=== PATIENT | male | born 1960 | race Caucasian/White ===

== ENCOUNTER 2019-04-08 12:34 | Emergency (ER) | payer SELFPAY ==
--- NOTE | 2019-04-08 14:22 | RAD REPORT ---
EXAM DESCRIPTION: RAD - Knee Right 3 View - 04/08/2019 2:05 pm CLINICAL HISTORY: Right knee pain FINDINGS: Marked osteoarthritis involves the medial compartment consisting joint space narrowing and osteophytes. Patellofemoral compartment is also involved. Bones are osteoporotic
--- NOTE | 2019-04-08 14:46 | EDPHYS ---
Physician Documentation [facility] Name: Jacob Pearson Age: 58 yrs Sex: Male : 1960 Arrival Date: 04/08/2019 Time: 12:35 Bed 12 Private MD: ED Physician Kal Vallejo HPI: 04/08 13:43 This 58 yrs old Male presents to ER via Ambulatory with complaints of Knee jmm Injury. 13:43 The patient presents with an injury, pain. Onset: The symptoms/episode began/occurred jmm acutely, just prior to arrival. Modifying factors: The symptoms are alleviated by remaining still, the symptoms are aggravated by movement, weight bearing, bending knee. Associated signs and symptoms: Pertinent negatives swelling, vomiting. This is a 58 year old male with a history of CAD presents to the ED with pain to the right knee after a fall which occurred just prior to arrival. Patient states he was carrying moving boxes and fell directly on the right knee from a standing position. Denies other injury. . Historical: - Allergies: 13:10 Cortisone; ph - PMHx: 13:10 R knee; cardiac stents; ph - Immunization history:: Adult Immunizations unknown. - Social history:: Smoking status: Patient/guardian denies using tobacco. - Ebola Screening: : No symptoms or risks identified at this time. ROS: 13:43 Constitutional: Negative for fever, chills, and weight loss, Cardiovascular: Negative jmm for chest pain, palpitations, and edema, Respiratory: Negative for shortness of breath, cough, wheezing, and pleuritic chest pain. 13:43 MS/extremity: Positive for injury or acute deformity, pain. 13:43 All other systems are negative. Exam: 13:43 Constitutional: This is a well developed, well nourished patient who is awake, alert, jmm and in no acute distress. Head/Face: atraumatic. Eyes: EOMI, no conjunctival erythema appreciated ENT: Moist Mucus Membranes Neck: Trachea midline, Supple Chest/axilla: Normal chest wall appearance and motion. Cardiovascular: Regular rate and rhythm. No edema appreciated Respiratory: Normal respirations, no respiratory distress appreciated Abdomen/GI: Non distended, soft Skin: General appearance color normal 13:43 Musculoskeletal/extremity: anterior knee TTP, FROM appreciated, compartments are soft, NVI. 13:43 Skin: Appearance: Color: normal in color. 13:43 Neuro: Orientation: is normal, Mentation: is normal, Memory: is normal. 13:43 Psych: Behavior/mood is pleasant, cooperative. Vital Signs: 13:09 BP 141 / 87; Pulse 87; Resp 18; Temp 97.8; Pulse Ox 97% on R/A; Weight 83.91 kg; Height ph 6 ft. 0 in. (182.88 cm); 14:25 BP 132 / 76; Pulse 81; Resp 18; Temp 97.5; Pulse Ox 99% on R/A; ph 13:09 Body Mass Index 25.09 (83.91 kg, 182.88 cm) ph MDM: 13:43 Patient medically screened. [facility] 14:44 Data reviewed: vital signs, nurses notes. Counseling: I had a detailed discussion with [facility] the patient and/or guardian regarding: the historical points, exam findings, and any diagnostic results supporting the discharge/admit diagnosis, radiology results, the need for outpatient follow up, to return to the emergency department if symptoms worsen or persist or if there are any questions or concerns that arise at home. 14:44 ED course: Xray negative for fracture. Patient states feeling much better after knee m immobilizer application. patient advised to follow up with ortho for reevaluation and otherwise given strict return precautions. patient understood and agrees with the plan of care. . 04/08 13:44 Order name: Knee Right 3 View XRAY; Complete Time: 14:24 [facility] 04/08 14:24 Order name: Knee Immobilizer [facility] Administered Medications: No medications were administered Disposition: 04/09 07:25 Co-signature as Attending Physician, Kal Vallejo MD I agree with the assessment and kdr plan of care. Disposition: 04/08/19 14:45 Discharged to Home. Impression: Internal derangement of knee. - Condition is Stable. - Discharge Instructions: Knee Pain. - Prescriptions for Ibuprofen 800 mg Oral Tablet - take 1 tablet by ORAL route every 8 hours As needed take with food; 30 tablet. - Medication Reconciliation Form, Thank You Letter, Antibiotic Education, Prescription Opioid Use form. - Follow up: Nathanael Lane MD; When: 2 - 3 days; Reason: Recheck today's complaints, Continuance of care, Re-evaluation by your physician. Signatures: [facility]patcher [facility] Kal Vallejo MD MD kdr Mickail, Joel, PA PA jmm Solis, Maria ms Hall, Patricia, RN RN ph Corrections: (The following items were deleted from the chart) 04/08 14:48 14:45 04/08/2019 14:45 Discharged to Home. Impression: Internal derangement of knee. ms Condition is Stable. Forms are Medication Reconciliation Form, Thank You Letter, Antibiotic Education, Prescription Opioid Use. Follow up: Nathanael Lane; When: 2 - 3 days; Reason: Recheck today's complaints, Continuance of care, Re-evaluation by your physician. dash
--- NOTE | 2019-04-08 14:46 | ER ---
Nurse's Notes [facility] Name: Jacob Pearson Age: 58 yrs Sex: Male : 1960 Arrival Date: 04/08/2019 Time: 12:35 Bed 12 Private MD: Diagnosis: Internal derangement of knee Presentation: 04/08 13:07 Presenting complaint: Patient states: Fell while moving, landed on both knees, c/o pain ph to R knee, swelling noted, hx of knee problems on R, denies other injury. Transition of care: patient was not received from another setting of care. Onset of symptoms was April 08, 2019. Risk Assessment: Do you want to hurt yourself or someone else? Patient reports no desire to harm self or others. Initial Sepsis Screen: Does the patient meet any 2 criteria? No. Patient's initial sepsis screen is negative. Does the patient have a suspected source of infection? No. Patient's initial sepsis screen is negative. Care prior to arrival: None. 13:07 Method Of Arrival: Ambulatory ph 13:07 Acuity: YOSI 4 ph Historical: - Allergies: 13:10 Cortisone; ph - PMHx: 13:10 R knee; cardiac stents; ph - Immunization history:: Adult Immunizations unknown. - Social history:: Smoking status: Patient/guardian denies using tobacco. - Ebola Screening: : No symptoms or risks identified at this time. Screenin:58 Abuse screen: Denies threats or abuse. Denies injuries from another. Nutritional ph screening: No deficits noted. Tuberculosis screening: No symptoms or risk factors identified. Fall Risk None identified. Assessment: 13:57 General: Appears in no apparent distress. uncomfortable, slender, well groomed, ph Behavior is calm, cooperative, appropriate for age. Pain: Complains of pain in right knee. Neuro: Level of Consciousness is awake, alert, obeys commands, Oriented to person, place, time, situation. Cardiovascular: Capillary refill < 3 seconds in bilateral fingers Patient's skin is warm and dry. Respiratory: Airway is patent Respiratory effort is even, unlabored. Derm: Skin is intact, is healthy with good turgor, Skin is pink, warm \T\ dry. Musculoskeletal: Circulation, motion, and sensation intact. Range of motion: intact in all extremities, Swelling present in right knee. Vital Signs: 13:09 BP 141 / 87; Pulse 87; Resp 18; Temp 97.8; Pulse Ox 97% on R/A; Weight 83.91 kg; Height ph 6 ft. 0 in. (182.88 cm); 14:25 BP 132 / 76; Pulse 81; Resp 18; Temp 97.5; Pulse Ox 99% on R/A; ph 13:09 Body Mass Index 25.09 (83.91 kg, 182.88 cm) ph ED Course: 12:35 Patient arrived in ED. mr 13:09 Triage completed. ph 13:14 Trey Buitrago PA is PHCP. [facility] 13:14 Kal Vallejo MD is Attending Physician. [facility] 13:44 Gay Dickey RN is Primary Nurse. ph 13:58 Arm band placed on. ph 13:58 Patient has correct armband on for positive identification. Call light in reach. Door ph closed. Noise minimized. Ice pack to injury. 14:07 Knee Right 3 View XRAY In Process Unspecified. EDMS 14:40 Crutch training done. Knee immobilizer applied on right knee. pt reports having working sg crutches at home, denies needing new crutches at this time, a crutchx1 is noted at the chairside. 14:[address] MD is Referral Physician. [facility] 14:45 No provider procedures requiring assistance completed. Patient did not have IV access sg during this emergency room visit. Administered Medications: No medications were administered Outcome: 14:45 Discharge ordered by MD. [facility] 14:45 Discharged to home ambulatory, with crutches, with family. 14:45 Condition: good 14:45 Discharge instructions given to patient, Instructed on discharge instructions, follow up and referral plans. safety practices, crutch walking, Demonstrated understanding of instructions, follow-up care, crutch walking, Prescriptions given X 1. 14:48 Patient left the ED. ms Signatures: Dispatcher [employer] EDMS Juan Snow, RN RN Trey Buitrago PA PA jmm Rivera, Mary mr Killian, Marilin ms Gay Dickey RN RN
== END 2019-04-08 14:48 | disposition home or self-care (01) ==
LOC: ER 12:34
DX: M23.91 Unspecified internal derangement of right knee (principal); W18.30XA Fall on same level, unspecified, initial encounter; Y93.9 Activity, unspecified; Y92.9 Unspecified place or not applicable; Z88.8 Allergy status to other drugs, medicaments and biological substances; Z95.818 Presence of other cardiac implants and grafts
CPT/HCPCS: 99283

== ENCOUNTER 2019-08-13 09:32 | Observation (INO) | payer SELFPAY ==
--- OUTSIDE RECORDS SUMMARY | 2019-08-13 09:33 | XMS REPORT ---
:1960 [facility] Address [address] [place] [address] [address] [place] [address] Care Team Providers Name Role Phone Unavailable Unavailable Unavailable Problems This patient has no known problems. Allergies, Adverse Reactions, Alerts This patient has no known allergies or adverse reactions. Medications This patient has no known medications. Encounters Start End Encounter Admission Attending Care Care Encounter Date/Time Date/Time Type Type Clinicians Facility Department ID 2019-05-13 2019-05-13 Outpatient [facility] [id number] 17:18:00 17:18:00 2019-05-13 2019-05-13 Inpatient E [facility] [id number] 15:47:00 15:01:00
[2019-08-13] MEDS ORDERED: NA CHLORIDE 0.9% 1,000 ML ONE (10:01)
[2019-08-13] MEDS ORDERED: THIAMINE 200 MG/2 ML INJ ONE (10:01)
[2019-08-13] MEDS ORDERED: FOLIC ACID 5 MG/ML VIAL ONE (10:03)
--- NOTE | 2019-08-13 10:21 | RAD REPORT ---
EXAM DESCRIPTION: CT - Ct Stroke Brain Wo Cont - 08/13/2019 10:10 am CLINICAL HISTORY: TIA COMPARISON: None TECHNIQUE: Computed axial tomography of the head was obtained. All CT scans are performed using dose optimization technique as appropriate and may include automated exposure control or mA/KV adjustment according to patient size. FINDINGS: Left frontal scalp swelling An intracranial bleed is not seen . The ventricles are normal in caliber. No extra-axial fluid collection is noted. Fluid within the sinuses/ mastoids is not seen. IMPRESSION: No acute intracranial abnormality is seen. If patient's symptoms persist MRI of the bra in would be recommended. Dr Diez of the emergency room was notified at 10:12 a.m. August 13, 2019
--- NOTE | 2019-08-13 10:22 | RAD REPORT ---
EXAM DESCRIPTION: CT - C Spine Wo Con - 08/13/2019 10:10 am CLINICAL HISTORY: Left-sided weakness somewhat stroke-like symptoms, fall COMPARISON: None. TECHNIQUE: Axial 2 mm thick images of the cervical spine were obtained with sagittal and coronal rec onstruction images generated and reviewed. All CT scans are performed using dose optimization technique as appropriate and may include automated exposure control or mA/KV adjustment according to patient size. FINDINGS: Cervical bodies are normal in height. There is a very slight anterior subluxation of C3 on C4. This disc space is also narrowed slightly. Significant disc space narrowing at C5-6 and C6-7. No fracture or acute bony abnormality. No pathologic bone process. Facet joint degenerative changes are present throughout the cervical spin e. Changes are very pronounced on the left at C3-4 where there is significant bony foraminal stenosis . Mild to moderate bilateral foraminal stenosis at C5-6 and C6-7. Posterior endplate spurring at both of these levels creating borderline spinal stenosis. Central canal detail is inherently limited. Exam has some motion degradation. IMPRESSION: No fracture or acute cervical spine finding. Degenerative changes are present with borderline spinal stenosis at C5-6 and C6-7. Significant left foraminal stenosis C3-4 with mild to moderate foraminal stenosis bilaterally at C5-6 and C6-7.
--- NOTE | 2019-08-13 10:37 | EDPHYS ---
Physician Documentation [facility] Name: Jacob Pearson Age: 59 yrs Sex: Male : 1960 Arrival Date: 08/13/2019 Time: 09:33 Bed 13 Private MD: ED Physician Farhad Diez HPI: 08/13 10:16 This 59 yrs old Male presents to ER via Ambulatory with complaints of sonny Numbness Of Arm, Numbness - Leg. 10:16 The patient or guardian complains of decreased range of motion. sonny Historical: - Allergies: 09:57 Cortisone; ss - Home Meds: 09:57 None [Active]; ss - PMHx: 09:57 Atrial Fib; TIA; ss - PSHx: :57 cardiac stents; R knee; ss - Immunization history:: Adult Immunizations up to date. - Social history:: Smoking status: Patient uses tobacco products, Cigarillos . - Ebola Screening: : Patient denies exposure to infectious person Patient denies travel to an Ebola-affected area in the 21 days before illness onset. ROS: 10:17 Constitutional: Negative for fever, chills, and weight loss, Eyes: Negative for injury, sonny pain, redness, and discharge, ENT: Negative for injury, pain, and discharge, Neck: Negative for injury, pain, and swelling, Cardiovascular: Negative for chest pain, palpitations, and edema, Respiratory: Negative for shortness of breath, cough, wheezing, and pleuritic chest pain, Abdomen/GI: Negative for abdominal pain, nausea, vomiting, diarrhea, and constipation, Back: Negative for injury and pain, : Negative for injury, bleeding, discharge, and swelling, Skin: Negative for injury, rash, and discoloration, Psych: Negative for depression, anxiety, suicide ideation, homicidal ideation, and hallucinations, Allergy/Immunology: Negative for hives, rash, and allergies, Endocrine: Negative for neck swelling, polydipsia, polyuria, polyphagia, and marked weight changes, Hematologic/Lymphatic: Negative for swollen nodes, abnormal bleeding, and unusual bruising. 10:17 MS/extremity: Positive for decreased range of motion, paresthesias, of the left arm and left leg. Exam: 10:17 Radiologist reports: neg sonny 10:17 Constitutional: This is a well developed, well nourished patient who is awake, alert, and in no acute distress. Head/Face: Normocephalic, atraumatic. Eyes: Pupils equal round and reactive to light, extra-ocular motions intact. Lids and lashes normal. Conjunctiva and sclera are non-icteric and not injected. Cornea within normal limits. Periorbital areas with no swelling, redness, or edema. ENT: Nares patent. No nasal discharge, no septal abnormalities noted. Tympanic membranes are normal and external auditory canals are clear. Oropharynx with no redness, swelling, or masses, exudates, or evidence of obstruction, uvula midline. Mucous membranes moist. Neck: Trachea midline, no thyromegaly or masses palpated, and no cervical lymphadenopathy. Supple, full range of motion without nuchal rigidity, or vertebral point tenderness. No Meningismus. Chest/axilla: Normal chest wall appearance and motion. Nontender with no deformity. No lesions are appreciated. Cardiovascular: Regular rate and rhythm with a normal S1 and S2. No gallops, murmurs, or rubs. Normal PMI, no JVD. No pulse deficits. Respiratory: Lungs have equal breath sounds bilaterally, clear to auscultation and percussion. No rales, rhonchi or wheezes noted. No increased work of breathing, no retractions or nasal flaring. Abdomen/GI: Soft, non-tender, with normal bowel sounds. No distension or tympany. No guarding or rebound. No evidence of tenderness throughout. Back: No spinal tenderness. No costovertebral tenderness. Full range of motion. Male : Normal genitalia with no discharge or lesions. MS/ Extremity: Pulses equal, no cyanosis. Neurovascular intact. Full, normal range of motion. Neuro: Awake and alert, GCS 15, oriented to person, place, time, and situation. Cranial nerves II-XII grossly intact. Motor strength 5/5 in all extremities. Sensory grossly intact. Cerebellar exam normal. Normal gait. Psych: Awake, alert, with orientation to person, place and time. Behavior, mood, and affect are within normal limits. 10:17 Skin: injury, abrasion(s), small abrasion noted. 10:17 Neuro: Orientation: is normal, appropriate for stated age, no acute changes, Mentation: is normal, appropriate for stated age, no acute changes, Memory: is normal, appropriate for stated age, no acute changes, Cranial nerves: grossly normal, is grossly normal based on the patient's age, no acute changes, Cerebellar function: is grossly normal, is grossly normal based on the patient's age, no acute changes, Motor: is normal, is grossly normal based on the patient's age, Sensation: is normal, no obvious gross deficits, appropriate no acute changes, Gait: not tested. Deep tendon reflexes are 1 (trace) + in the bilateral brachioradialis, bicep, tricep and patellar and Achilles tendons. Vital Signs: 09:44 BP 138 / 86; Pulse 86; Resp 16; Temp 98.0(TE); Pulse Ox 98% on R/A; Weight 81.65 kg; ss Height 6 ft. 0 in. (182.88 cm); Pain 0/10; 10:20 BP 127 / 91; Pulse 70; Resp 16 S; Pulse Ox 98% on R/A; ca1 12:33 BP 143 / 91; Pulse 91; Resp 16 S; Pulse Ox 99% on R/A; ca1 13:30 BP 106 / 70; Pulse 73; Resp 14 S; Pulse Ox 99% on R/A; ca1 14:26 BP 113 / 65; Pulse 82 MON; Resp 20 S; Pulse Ox 97% on R/A; ca1 09:44 Body Mass Index 24.41 (81.65 kg, 182.88 cm) ss NIH Stroke Scale Scores: 11:15 NIHSS Score: 0 sonny MDM: 09:44 Patient medically screened. sonny 10:19 ED course: symptoms noted on awaking 230am, arm and legthen, 7am leg numb, no a tpa sonny candidate. 10:22 Data reviewed: vital signs, nurses notes, lab test result(s), EKG, radiologic studies, sonny CT scan, plain films. 08/13 09:45 Order name: Basic Metabolic Panel [facility] 08/13 09:45 Order name: CBC with Diff; Complete Time: 11:20 sonny 08/13 09:45 Order name: LFT's; Complete Time: 11:20 sonny 08/13 09:45 Order name: Magnesium; Complete Time: 11:20 sonny 08/13 09:45 Order name: NT PRO-BNP; Complete Time: 11:20 sonny 08/13 09:45 Order name: PT-INR; Complete Time: 11:20 sonny 08/13 09:45 Order name: Troponin (emerg Dept Use Only); Complete Time: 11:20 [facility] 08/13 09:46 Order name: Basic Metabolic Panel; Complete Time: 11:20 [facility] 08/13 10:16 Order name: Acetaminophen; Complete Time: 11:20 [facility] 08/13 10:16 Order name: ETOH Level; Complete Time: 11:20 [facility] 08/13 10:16 Order name: Ptt, Activated; Complete Time: 11:20 [facility] 08/13 10:16 Order name: Salicylate; Complete Time: 11:20 [facility] 08/13 10:16 Order name: Urine Drug Screen; Complete Time: 15:15 [facility] 08/13 14:34 Order name: Urine Dipstick--Ancillary (enter results) em1 08/13 09:45 Order name: XRAY Chest (1 view); Complete Time: 11:20 [facility] 08/13 09:45 Order name: EKG; Complete Time: 09:47 [facility] 08/13 09:45 Order name: CT Stroke Brain w/o Contrast; Complete Time: 10:32 [facility] 08/13 09:46 Order name: CT C Spine; Complete Time: 10:32 [facility] 08/13 10:39 Order name: US Carotid Artery Bilateral; Complete Time: 15:15 [facility] 08/13 10:39 Order name: Echo w/ Doppler [facility] 08/13 12:13 Order name: Brain Wo Cont; Complete Time: 15:15 [facility] 08/13 14:47 Order name: Urine Dipstick-Ancillary; Complete Time: 15:15 [facility] 08/13 09:45 Order name: Cardiac monitoring; Complete Time: 09:55 [facility] 08/13 09:45 Order name: EKG - Nurse/Tech; Complete Time: 10:06 [facility] 08/13 09:45 Order name: IV Saline Lock; Complete Time: 10:32 [facility] 08/13 09:45 Order name: Labs collected and sent; Complete Time: 10:32 [facility] 08/13 09:45 Order name: O2 Per Protocol; Complete Time: 09:55 [facility] 08/13 09:45 Order name: O2 Sat Monitoring; Complete Time: 09:55 [facility] 08/13 09:45 Order name: Urine Dipstick-Ancillary (obtain specimen); Complete Time: 14:28 [facility] 08/13 12:56 Order name: CONS Physician Consult EDMS Administered Medications: 10:22 Drug: NS 0.9% 1000 ml Route: IV; Rate: 1 bolus; Site: right antecubital; ca1 12:00 Follow up: Response: No adverse reaction; IV Status: Completed infusion ca1 10:22 Drug: foLIC Acid 1 mg Route: IVPB; Site: right antecubital; ca1 12:00 Follow up: Response: No adverse reaction; IV Status: Completed infusion ca1 10:22 Drug: Thiamine 100 mg Route: IV; Rate: bolus; Site: right antecubital; ca1 12:00 Follow up: Response: No adverse reaction; IV Status: Completed infusion ca1 10:44 Drug: Aspirin Chewable Tablet 324 mg Route: PO; ca1 11:26 Follow up: Response: No adverse reaction ca1 12:00 Drug: Potassium Effervescent Tablet 50 mEq Route: PO; ca1 14:01 Follow up: Response: No adverse reaction ca1 12:01 Drug: D50W 25 ml Route: IVP; Site: right antecubital; ca1 14:01 Follow up: Response: No adverse reaction ca1 12:05 Drug: Magnesium Sulfate 2 grams Route: IVPB; Infused Over: 2 hrs; Site: right ca1 antecubital; 14:01 Follow up: Response: No adverse reaction; IV Status: Completed infusion ca1 Disposition: 08/13/19 10:36 Hospitalization ordered by Natalie Torres for Inpatient Admission. Preliminary diagnosis are Fall due to bumping against object, Transient cerebral ischemic attack, unspecified, Tobacco abuse counseling, Tobacco use, Hypomagnesemia, Hypokalemia, Alcohol abuse with intoxication. - Bed requested for Telemetry/MedSurg (Inpatient). - Status is Inpatient Admission. iw - Condition is Fair. - Problem is new. - Symptoms have improved. UTI on Admission? No NIH Stroke Scale - NIH Stroke Score Date: 08/13/2019 Time: 11:15 Total Score = 0 1a. Level of Consciousness (LOC) - 0(Alert) 1b. Level of Consciousness (LOC) (Year \T\ Age) - 0(Both) 1c. LOC Commands (Open \T\ Closes Eyes/Belt Back Operator) - 0(Both) 2. Best Gaze (Lateral Gaze Paresis) - 0(Normal) 3. Visual Field Loss - 0(No visual loss) 4. Facial Palsy - 0(Normal) 5a. Left Arm: Motor (10-second hold) - 0(No drift) 5b. Right Arm: Motor (10-second hold) - 0(No drift) 6a. Left Leg: Motor (5-second hold - always test supine) - 0(No drift) 6b. Right Leg: Motor (5-second hold - always test supine) - 0(No drift) 7. Limb Ataxia (finger/nose \T\ heel/oliver - test with eyes open) - 0(Absent) 8. Sensory Loss (pinprick arms/legs/face) - 0(Normal) 9. Best Language: Aphasia (description/naming/reading) - 0(No aphasia) 10. Dysarthria (speech clarity - read or repeat words) - 0(Normal) 11. Extinction and Inattention (visual/tactile/auditory/spatial/personal) - 0(No abnormality) Initials: sonny Signatures: Dispatcher [employer] Farhad Ku MD MD cha Williams, Irene, RN RN iw El, Tre em1 Monae Westfall RN RN ss Stacey Enciso RN RN ca1 Corrections: (The following items were deleted from the chart) 11:23 10:36 Hospitalization Ordered by Natalie Torres MD for Inpatient Admission. sonny Preliminary diagnosis is Fall due to bumping against object; Transient cerebral ischemic attack, unspecified; Alcohol abuse; Tobacco abuse counseling; Tobacco use. Bed requested for Telemetry/MedSurg (Inpatient). Status is Inpatient Admission. Condition is Fair. Problem is new. Symptoms have improved. UTI on Admission? No. sonny 12:13 10:23 MR STROKE PROTOCOL+MRI.RAD.BRZ ordered. [facility] 14:14 11:23 08/13/2019 10:36 Hospitalization Ordered by Natalie Torres MD for Inpatient em1 Admission. Preliminary diagnosis is Fall due to bumping against object; Transient cerebral ischemic attack, unspecified; Tobacco abuse counseling; Tobacco use; Hypomagnesemia; Hypokalemia; Alcohol abuse with intoxication. Bed requested for Telemetry/MedSurg (Inpatient). Status is Inpatient Admission. Condition is Fair. Problem is new. Symptoms have improved. UTI on Admission? No. sonny 15:22 14:14 08/13/2019 10:36 Hospitalization Ordered by Natalie Torres MD for Inpatient iw Admission. Preliminary diagnosis is Fall due to bumping against object; Transient cerebral ischemic attack, unspecified; Tobacco abuse counseling; Tobacco use; Hypomagnesemia; Hypokalemia; Alcohol abuse with intoxication. Bed requested for Telemetry/MedSurg (Inpatient). Status is Inpatient Admission. Condition is Fair. Problem is new. Symptoms have improved. UTI on Admission? No. em1
--- NOTE | 2019-08-13 10:37 | ER ---
Nurse's Notes [facility] Name: Jacob Pearson Age: 59 yrs Sex: Male : 1960 Arrival Date: 08/13/2019 Time: 09:33 Bed 13 Private MD: Diagnosis: Fall due to bumping against object;Transient cerebral ischemic attack, unspecified;Tobacco abuse counseling;Tobacco use;Hypomagnesemia;Hypokalemia;Alcohol abuse with intoxication Presentation: 08/13 09:45 Presenting complaint: Patient states: Pt woke up this morning at 0230 and noticed his L ss side felt weak. Pt states, "my leg gave out and I fell." small skin tear noted to hand and above L eyebrow. Denies pain, LOC. Last known well at 2100 yesterday evening when he went to bed feeling fine. Symptoms have reportedly resolved 95 %. Still c/o slight paresthesias to L upper extremity. VAN negative. Transition of care: patient was not received from another setting of care. Onset of symptoms was August 12, 2019 at 21:00. Risk Assessment: Do you want to hurt yourself or someone else? Patient reports no desire to harm self or others. Initial Sepsis Screen: Does the patient meet any 2 criteria? No. Patient's initial sepsis screen is negative. Does the patient have a suspected source of infection? No. Patient's initial sepsis screen is negative. Care prior to arrival: None. 09:45 Acuity: YOSI 3 ss 09:45 Method Of Arrival: Ambulatory ss Historical: - Allergies: 09:57 Cortisone; - Home Meds: 09:57 None [Active]; ss - PMHx: 09:57 Atrial Fib; TIA; ss - PSHx: 09:57 cardiac stents; R knee; ss - Immunization history:: Adult Immunizations up to date. - Social history:: Smoking status: Patient uses tobacco products, Cigarillos . - Ebola Screening: : Patient denies exposure to infectious person Patient denies travel to an Ebola-affected area in the 21 days before illness onset. Screenin:20 Abuse screen: Denies threats or abuse. Denies injuries from another. Nutritional ca1 screening: No deficits noted. Tuberculosis screening: No symptoms or risk factors identified. Fall Risk Fall in past 12 months (25 points). Secondary diagnosis (15 points) TIA, CVA, IV access (20 points). Total Wilkins Fall Scale indicates High Risk Score (45 or more points). Fall prevention measures have been instituted. Side Rails Up X 2 As available patient and family educated on Fall Prevention Program and Strategies. 10:30 Patient has been NPO before screening. The patient is alert, able to follow commands. ca1 The patient does not exhibit slurred or garbled speech The patient is not exhibiting difficulty speaking. The patient does not exhibit difficulty understanding words. The patient is able to swallow own secretions with no drooling or need for suction. Patient tolerated one teaspoon of water. No drooling, immediate coughing, gurgling, or clearing of the throat was noted. The patient tolerated 90mL of water. No drooling, immediate coughing, gurgling, or clearing of the throat was noted. The patient passed the bedside swallow screening. Oral medications may be given as ordered. Contact Physician for further diet orders. Provider notified of bedside swallow screening results: Stacey Enciso RN. Assessment: 10:20 General: Appears in no apparent distress. comfortable, Behavior is calm, cooperative, ca1 appropriate for age. Pain: Denies pain. Neuro: Level of Consciousness is awake, alert, obeys commands, Oriented to person, place, time, situation, Aircraft Structure Mechanic are equal bilaterally Moves all extremities. Gait is steady, Speech is normal, Facial symmetry appears normal, Pupils are PERRLA, Intact. Cardiovascular: Heart tones S1 S2 present Capillary refill < 3 seconds Patient's skin is warm and dry. Cardiovascular: Rhythm is sinus rhythm. Respiratory: Airway is patent Respiratory effort is even, unlabored, Respiratory pattern is regular, symmetrical, Breath sounds are clear bilaterally. GI: Abdomen is flat, non-distended, Bowel sounds present X 4 quads. Abd is soft and non tender X 4 quads. : No deficits noted. No signs and/or symptoms were reported regarding the genitourinary system. EENT: No deficits noted. No signs and/or symptoms were reported regarding the EENT system. Derm: Skin is intact, is healthy with good turgor, Skin is pink, warm \\T\\ dry. Musculoskeletal: Circulation, motion, and sensation intact. Capillary refill < 3 seconds, Range of motion: intact in all extremities. 12:20 Reassessment: Patient appears in no apparent distress at this time. Patient is alert, ca1 oriented x 3, equal unlabored respirations, skin warm/dry/pink. ALEJANDRO Lopez at bedside. 13:30 Reassessment: Patient appears in no apparent distress at this time. Patient is alert, ca1 oriented x 3, equal unlabored respirations, skin warm/dry/pink. Pending Room Assignment. Followed up on urine. 14:26 Reassessment: Patient appears in no apparent distress at this time. Patient is alert, ca1 oriented x 3, equal unlabored respirations, skin warm/dry/pink. Called for report. Nurse will call back. Vital Signs: 09:44 BP 138 / 86; Pulse 86; Resp 16; Temp 98.0(TE); Pulse Ox 98% on R/A; Weight 81.65 kg; ss Height 6 ft. 0 in. (182.88 cm); Pain 0/10; 10:20 BP 127 / 91; Pulse 70; Resp 16 S; Pulse Ox 98% on R/A; ca1 12:33 BP 143 / 91; Pulse 91; Resp 16 S; Pulse Ox 99% on R/A; ca1 13:30 BP 106 / 70; Pulse 73; Resp 14 S; Pulse Ox 99% on R/A; ca1 14:26 BP 113 / 65; Pulse 82 MON; Resp 20 S; Pulse Ox 97% on R/A; ca1 09:44 Body Mass Index 24.41 (81.65 kg, 182.88 cm) ss NIH Stroke Scale Scores: 11:15 NIHSS Score: 0 sonny ED Course: 09:33 Patient arrived in ED. as 09:44 Farhad Diez MD is Attending Physician. sonny 09:44 Arm band placed on right wrist. ss 09:48 Elli Shepherd, JEREL is Primary Nurse. jl7 09:56 Triage completed. ss 10:03 EKG done, by career technical education instructor. reviewed by Farhad Diez MD. at1 10:11 XRAY Chest (1 view) In Process Unspecified. EDMS 10:11 CT Stroke Brain w/o Contrast In Process Unspecified. EDMS 10:11 CT C Spine In Process Unspecified. EDMS 10:20 Patient has correct armband on for positive identification. Placed in gown. Bed in low ca1 position. Call light in reach. Side rails up X 1. cardiac monitor technician on. Pulse ox on. NIBP on. Warm blanket given. 10:20 No provider procedures requiring assistance completed. Initial lab(s) drawn, by oh, ca1 sent to lab. Inserted saline lock: 20 gauge in right antecubital area, using aseptic technique. Blood collected. 10:31 Primary Nurse role handed off by Elli Shepherd RN ca1 10:31 Stacey Enciso RN is Primary Nurse. ca1 10:34 Natalie Torres MD is Hospitalizing Provider. sonny 11:17 Patient moved to MRI via stretcher. ca1 11:25 Carotid Artery Bilateral In Process Unspecified. EDMS 12:13 Brain Wo Cont In Process Unspecified. EDMS 14:00 Patient admitted, IV remains in place. ca1 Administered Medications: 10:22 Drug: NS 0.9% 1000 ml Route: IV; Rate: 1 bolus; Site: right antecubital; ca1 12:00 Follow up: Response: No adverse reaction; IV Status: Completed infusion ca1 10:22 Drug: foLIC Acid 1 mg Route: IVPB; Site: right antecubital; ca1 12:00 Follow up: Response: No adverse reaction; IV Status: Completed infusion ca1 10:22 Drug: Thiamine 100 mg Route: IV; Rate: bolus; Site: right antecubital; ca1 12:00 Follow up: Response: No adverse reaction; IV Status: Completed infusion ca1 10:44 Drug: Aspirin Chewable Tablet 324 mg Route: PO; ca1 11:26 Follow up: Response: No adverse reaction ca1 12:00 Drug: Potassium Effervescent Tablet 50 mEq Route: PO; ca1 14:01 Follow up: Response: No adverse reaction ca1 12:01 Drug: D50W 25 ml Route: IVP; Site: right antecubital; ca1 14:01 Follow up: Response: No adverse reaction ca1 12:05 Drug: Magnesium Sulfate 2 grams Route: IVPB; Infused Over: 2 hrs; Site: right ca1 antecubital; 14:01 Follow up: Response: No adverse reaction; IV Status: Completed infusion ca1 Outcome: 10:36 Decision to Hospitalize by Provider. sonny 14:49 Admitted to Tele accompanied by angie, via wheelchair, room 424, with chart, Report ca1 called to JEREL Burr 14:49 Condition: stable 14:49 Instructed on the need for admit. 15:22 Patient left the ED. iw NIH Stroke Scale - NIH Stroke Score Date: 08/13/2019 Time: 11:15 Total Score = 0 1a. Level of Consciousness (LOC) - 0(Alert) 1b. Level of Consciousness (LOC) (Year \\T\\ Age) - 0(Both) 1c. LOC Commands (Open \\T\\ Closes Eyes/Auto Body Service Mechanic) - 0(Both) 2. Best Gaze (Lateral Gaze Paresis) - 0(Normal) 3. Visual Field Loss - 0(No visual loss) 4. Facial Palsy - 0(Normal) 5a. Left Arm: Motor (10-second hold) - 0(No drift) 5b. Right Arm: Motor (10-second hold) - 0(No drift) 6a. Left Leg: Motor (5-second hold - always test supine) - 0(No drift) 6b. Right Leg: Motor (5-second hold - always test supine) - 0(No drift) 7. Limb Ataxia (finger/nose \\T\\ heel/oliver - test with eyes open) - 0(Absent) 8. Sensory Loss (pinprick arms/legs/face) - 0(Normal) 9. Best Language: Aphasia (description/naming/reading) - 0(No aphasia) 10. Dysarthria (speech clarity - read or repeat words) - 0(Normal) 11. Extinction and Inattention (visual/tactile/auditory/spatial/personal) - 0(No abnormality) Initials: sonny Signatures: Dispatcher [employer] EDFarhad Kendall MD MD cha Martinez, Amelia as Maria Elena Velasquez RN RN iw Monae Westfall RN RN ss Brenda Suggs, boiler tester EKG Tat1 Elli Shepherd RN RN jl7 Stacey Enciso RN RN ca1 Corrections: (The following items were deleted from the chart) 13:59 11:20 Reassessment: Patient appears in no apparent distress at this time. ca1 Patient and/or family updated on plan of care and expected duration. Pain level reassessed. Patient is alert, oriented x 3, equal unlabored respirations, skin warm/dry/pink. ca1 14:39 13:30 Reassessment: Patient appears in no apparent distress at this time. ca1 Patient is alert, oriented x 3, equal unlabored respirations, skin warm/dry/pink. Pending Room Assignment. Followed up on urien ca1
[2019-08-13 10:40] LABS: Absolute Lymphocytes (CBC) 1.6 K/uL (0.7-4.9); Basophils % 1.2 % (0-1.3); Hematocrit 48.2 % (39.6-49.0); Lymphocytes % 27.3 % (15.3-44.8); MPV 9.4 fL (7.6-11.3); RBC Red Blood Cell Count 4.79 M/uL (4.33-5.43)
[2019-08-13] MEDS ORDERED: ASPIRIN 81 MG CHEWABLE TABLET ONE (10:41)
[2019-08-13 10:46] LABS: Protime INR 0.95
[2019-08-13 10:58] LABS: ALT/SGPT 104 U/L (12-78); AST/SGOT 129 U/L (15-37); Albumin 3.5 g/dL (3.4-5.0); Alkaline Phosphatase 96 U/L (45-117); BUN Blood Urea Nitrogen 4 mg/dL (7-18); Bicarbonate 29 mmol/L (21-32); Bilirubin Direct 0.5 mg/dL (0-0.2); Glucose Level 69 mg/dL (74-106); Magnesium 1.7 mg/dL (1.8-2.4); NT PRO-BNP 71 pg/mL (<125); Potassium 3.2 mmol/L (3.5-5.1); Sodium Level 141 mmol/L (136-145); Troponin (Emerg Dept Use Only) < 0.02 ng/mL (0.0-0.045)
--- NOTE | 2019-08-13 11:15 | RAD REPORT ---
EXAM DESCRIPTION: RAD - Chest Single View - 08/13/2019 10:10 am CLINICAL HISTORY: Left-sided weakness, stroke-like symptoms, cough COMPARISON: None. TECHNIQUE: AP portable chest image was obtained [id number] hours . FINDINGS: Lungs are clear. Heart and vasculature are normal. No measurable pleural effusion and no p neumothorax. No acute bony abnormality seen. No acute aortic findings suspected. IMPRESSION: No acute cardiopulmonary process.
[2019-08-13] MEDS ORDERED: D50W 25 GM/50 ML SYRINGE/VIAL IV ONE (11:32)
[2019-08-13] MEDS ORDERED: Magnesium Sulfate 2gm IVPB 2 G/50 ML BAG IV ONE (11:32)
[2019-08-13] MEDS ORDERED: POTASSIUM 25 MEQ EFFERV TAB ONE (11:32)
--- NOTE | 2019-08-13 12:04 | RAD REPORT ---
EXAM DESCRIPTION: - CP - 08/13/2019 11:42 am CLINICAL HISTORY: TIA, stroke-like symptoms COMPARISON: None. TECHNIQUE: Real-time sonographic evaluation of both carotid systems was performed. Martinez scale and Do ppler interrogation were performed with waveform tracing bilaterally. FINDINGS: Normal high resistance waveforms are noted in both external carotid arteries. The common c arotid arteries and internal carotid arteries show normal low resistance waveforms. Prominent calcified plaquing changes are present at the right common carotid -carotid bulb junction. Luminal narrowing is seen but does not appear to reach hemodynamically significant luminal narrowing. Less prominent calcified plaquing changes are present at the left carotid bulb. Peak systolic and en d diastolic velocity values and the ICA/CCA ratios are in the non-hemodynamically significant range. Antegrade flow seen in both vertebral arteries. Velocity values and ratios were recorded and are retained in the patient's imaging records. IMPRESSION: Right greater than left calcified plaquing changes near each carotid bulb. Velocity values and ICA/ CCA ratios show no hemodynamically significant degrees of stenosis.
--- NOTE | 2019-08-13 12:58 | RAD REPORT ---
EXAM DESCRIPTION: MRI - Brain Wo Cont - 08/13/2019 12:06 pm CLINICAL HISTORY: Dizziness;TIA;Numbness COMPARISON: CT head same date TECHNIQUE: Sagittal T1-weighted images were obtained along with axial PD, heavily T2-weighted and T2 -FLAIR images. Axial DWI and ADC mapping sequences were also obtained along with coronal heavily T2-w eighted images. FINDINGS: No intracranial hemorrhage, mass or acute infarction. There is no edema or shift of midlin e structures. No extra-axial fluid collections. Martinez-matter/white matter junction is preserved. Signa l voids are seen as a normal finding in the major intracranial vessels. Patient has minimal atrophy a nd mild chronic ischemic change scattered in the white matter. Thalamus, basal ganglia and brainstem tissues are spared any measurable chronic ischemic change. There is some cerebellar atrophy present s imilar to the cerebral atrophy. . No globe or orbital content abnormality. No sella or supra sella abnormality. Mastoid air cells and paranasal sinuses are clear. Small left frontal scalp hematoma present. IMPRESSION: No acute infarction changes are present. No hemorrhage, mass or acute intracranial findi ng. Patient has mild atrophy and mild chronic ischemic change.
--- NOTE | 2019-08-13 14:38 | P.HP ---
Certification for Inpatient Patient admitted to: Observation With expected LOS: <2 Midnights Patient will require the following post-hospital care: None Practitioner: I am a practitioner with admitting privileges, knowledge of patient current condition, hospital course, and medical plan of care. Services: Services provided to patient in accordance with Admission requirements found in Title 42 Section 412.3 of the Code of Federal Regulations <Bj White - Last Filed: 08/13/19 14:33> Patient History Date of Service: 08/13/19 Primary Care Provider: None Reason for admission: TIA Home medications list reviewed: Yes - Past Medical/Surgical History Has patient received pneumonia vaccine in the past: No Diabetic: No -: TIA -: Alcohol Abuse <Bj White - Last Filed: 08/13/19 14:33> Date of Service: 08/13/19 History of Present Illness: 59-year-old male with no prior medical problems except history of alcohol abuse and TIA. Patient reported right-sided paresthesias. This occurred the night before. Patient admitted to drinking alcohol. Patient denies any chest pain, shortness of breath or dizziness. Patient did fall at home. He came to the ER for further evaluation. In the ER patient when evaluated. Alcohol level elevated. Initial CT scan head unremarkable. Patient had low potassium and magnesium along with blood sugar. Elevated liver function noted. Patient was admitted for further evaluation. - Past Medical/Surgical History Past Surgical History: Patient denies surgical history Psychosocial/ Personal History: Patient lives at home - Family History Family History: Reviewed- Non-Contributory - Family History Mother -: Cancer Notes: breast Father Notes: liver disease - Social History Smoking Status: Former smoker Alcohol use: Yes CD- Drugs: No Caffeine use: Yes Place of Residence: Home <Jaxson Aldana - Last Filed: 08/13/19 19:21> Allergies cortisone Allergy (Verified 08/13/19 14:22) Hives/Rash Review of Systems General: Unremarkable Eyes: Unremarkable ENT: Unremarkable Respiratory: Unremarkable Cardiovascular: Unremarkable Gastrointestinal: Unremarkable Musculoskeletal: Unremarkable Integumentary: Unremarkable Neurological: Numbness Lymphatics: Unremarkable <Bj White - Last Filed: 08/13/19 14:33> Integumentary: As per HPI (Bruise is to the left frontal area), Unremarkable Neurological: As per HPI <Jaxson Aldana - Last Filed: 08/13/19 19:21> Physical Examination - Vital Signs Temperature: 98.0 F Blood Pressure: 138/86 Pulse: 86 Respirations: 16 Pulse Ox (%): 98 (RA) - Physical Exam General: Alert, In no apparent distress, Oriented x3, Cooperative HEENT: Normocephalic, PERRLA, Mucous membr. moist/pink, EOMI Neck: Supple, 2+ carotid pulse no bruit, JVD not distended, No Thyromegaly, No LAD Respiratory: Clear to auscultation bilaterally, Normal air movement Cardiovascular: No edema, Normal pulses, Regular rate/rhythm, Normal S1 S2, No gallops, No rubs, No murmurs Capillary refill: <2 Seconds Gastrointestinal: Normal bowel sounds, Soft and benign, Non-distended, No tenderness Musculoskeletal: No clubbing, No swelling, No contractures, No erythema, No tenderness, No warmth Integumentary: No rashes, No breakdown, No significant lesion, No tenderness/ swelling, No erythema, No warmth, No cyanosis Neurological: Normal gait, Normal speech, Normal strength at 5/5 x4 extr, Normal tone, Sensation intact, Cranial nerves 3-12 intact, Normal reflexes 2+, Normal affect - Studies Laboratory Data (last 24 hrs) 08/13/19 10:21: APTT 36.7 08/13/19 10:20: PT 11.2, INR 0.95 08/13/19 10:20: WBC 5.8, Hgb 16.6, Hct 48.2, Plt Count 114 L 08/13/19 10:20: Sodium 141, Potassium 3.2 L, BUN 4 L, Creatinine 0.55, Glucose 69 L, Magnesium 1.7 L, Total Bilirubin 1.0, AST 129 H, ALT 104 H, Alkaline Phosphatase 96 <Bj White - Last Filed: 08/13/19 14:33> - Physical Exam HEENT: Other (Patient has left frontal hematoma) Integumentary: Other (Patient has chronic dermatitis to the back) - Studies Laboratory Data (last 24 hrs) 08/13/19 10:21: APTT 36.7 08/13/19 10:20: Triglycerides 86, Cholesterol 159, HDL Cholesterol 91 H, Cholesterol/HDL Ratio 1.75 08/13/19 10:20: PT 11.2, INR 0.95 08/13/19 10:20: WBC 5.8, Hgb 16.6, Hct 48.2, Plt Count 114 L 08/13/19 10:20: Sodium 141, Potassium 3.2 L, BUN 4 L, Creatinine 0.55, Glucose 69 L, Magnesium 1.7 L, Total Bilirubin 1.0, AST 129 H, ALT 104 H, Alkaline Phosphatase 96 <Jaxson Aldana - Last Filed: 08/13/19 19:21> Assessment and Plan - Problems (Diagnosis) (1) Alcohol abuse Current Visit: Yes Status: Chronic (2) Transient ischemic attack (TIA) Current Visit: Yes Status: Acute - Plan This is a 59-year-old gentleman that came into the emergency room today after having numbness and tingling to the right side of his body last night. Stated that most of it has now resolved. Currently without any focal neurologic deficits. Patient stated that he continues to smoke at home and has alcohol abuse. Patient currently with an ETOH of over 200. Patient was also found to be hypokalemic and hypomagnesmic most likely from chronic alcohol abuse. Has elevated liver enzymes consistent with chronic alcohol abuse. Troponin is negative. CT of the head was negative. MRI of the head and echo of the heart and carotid arteries have been ordered. Pending results as of now. Patient will be admitted for observation. Neurology has been consulted. Patient has been started on Librium, nicotine, aspirin, Plavix, atorvastatin. Neurologic checks and vital signs will be monitored. Discharge Plan: Home Plan to discharge in: 24 Hours - Advance Directives Does patient have a Living Will: No Does patient have a Durable POA for Healthcare: No - Code Status/Comfort Care Code Status Assessed: Yes Code Status: Full Code Critical Care: No Time Spent Managing Pts Care (In Minutes): 35 <Bj Wihte - Last Filed: 08/13/19 14:33> - Plan Impression: Right-sided paresthesias likely related to a TIA versus alcohol-related patient with history of TIA Alcohol abuse with intoxication Elevated liver function likely related to alcohol abuse Hypokalemia and hypomagnesemia likely related to alcohol abuse Left frontal hematoma secondary to fall Plan: Patient admitted for further evaluation and treatment. Will obtain MRI of brain , carotid Doppler and an echo. Will teach on alcohol cessation. Will provide IV fluids and replace electrolytes. Symptoms have resolved. Paresthesias likely related to alcohol intoxication. Will monitor closely. Fall precautions in place. Will provide DVT prophylaxis-Lovenox. Will continue to further assess and recheck. Patient placed on aspirin, Plavix, Lipitor. Will consider neurology evaluation if MRI is positive. <Jaxson Aldana - Last Filed: 08/13/19 19:21>
[2019-08-13 14:46] LABS: Urine Blood NEGATIVE (NEG); Urine Glucose NEGATIVE (NEG); Urine Protein NEGATIVE (NEG); Urine Specific Gravity 1.015 (1.005-1.030); Urine pH 7.5 (5.0-7.0)
[2019-08-13 14:53] LABS: Barbiturates NEGATIVE (NEGATIVE); Benzodiazepines NEGATIVE (NEGATIVE); Cocaine NEGATIVE (NEGATIVE); METHAMPHETAM NEGATIVE (NEGATIVE); Methadone NEGATIVE (NEGATIVE); Opiates NEGATIVE (NEGATIVE); Phencyclidine NEGATIVE (NEGATIVE); THC Cannibis NEGATIVE (NEGATIVE)
--- NOTE | 2019-08-13 15:32 | EKG ---
Test Date: 2019-08-13 Test Time: 09:59:21 Project Hire: MIRIAM MEASUREMENT RESULTS: Intervals: Rate: 74 CT: 116 QRSD: 114 QT: 428 QTc: 475 [place]: P: CT: 116 QRS: 53 T: 126 INTERPRETIVE STATEMENTS: Normal sinus rhythm ST & T wave abnormality, consider lateral ischemia Abnormal ECG No previous ECG available for comparison Electronically Signed On 08-13-19 15:30:58 [employer] MANAGER by Jamar Albarran
[2019-08-13 15:35] VITALS: O2SAT 97
[2019-08-13] MEDS ORDERED: NA CHLORIDE 0.9% 1,000 ML IV SCH (15:46)
[2019-08-13] MEDS ORDERED: ONDANSETRON 4 MG/2 ML VIAL IV PRN (15:46)
[2019-08-13] MEDS ORDERED: NICOTINE 21 MG/PAT TD SCH (16:00)
[2019-08-13] MEDS ORDERED: ENOXAPARIN 40 MG/0.4 ML SQ SCH (17:00)
[2019-08-13 17:38] VITALS: BMI 24.4
[2019-08-13] MEDS ORDERED: chlordiazePOXIDE HCl 25 MG CAP PO SCH (18:00)
--- NOTE | 2019-08-13 18:47 | RAD REPORT ---
EXAM DESCRIPTION: RAD - Ankle Left 3 View - 08/13/2019 6:39 pm CLINICAL HISTORY: Fall, ankle pain COMPARISON: None. FINDINGS: No fracture, dislocation or periosteal reaction. No joint effusion seen. No joint space na rrowing. No soft tissue abnormality. Lateral soft tissue swelling is present. IMPRESSION: Soft tissue swelling with no left ankle fracture.
--- NOTE | 2019-08-13 19:05 | P.DS ---
Admission Date: 08/13/19 Discharge Date: 08/13/19 Primary Care Provider: None Disposition: ROUTINE DISCHARGE Discharge Condition: GOOD Reason for Admission: TIA Consultations: none Procedures: Carotid Doppler: FINDINGS: Normal high resistance waveforms are noted in both external carotid arteries. The common carotid arteries and internal carotid arteries show normal low resistance waveforms. Prominent calcified plaquing changes are present at the right common carotid - carotid bulb junction. Luminal narrowing is seen but does not appear to reach hemodynamically significant luminal narrowing. Less prominent calcified plaquing changes are present at the left carotid bulb. Peak systolic and end diastolic velocity values and the ICA/CCA ratios are in the non-hemodynamically significant range. Antegrade flow seen in both vertebral arteries. Velocity values and ratios were recorded and are retained in the patient's imaging records. IMPRESSION: Right greater than left calcified plaquing changes near each carotid bulb. Velocity values and ICA/ CCA ratios show no hemodynamically significant degrees of stenosis MRI Head: FINDINGS: No intracranial hemorrhage, mass or acute infarction. There is no edema or shift of midline structures. No extra-axial fluid collections. Martinez- matter/white matter junction is preserved. Signal voids are seen as a normal finding in the major intracranial vessels. Patient has minimal atrophy and mild chronic ischemic change scattered in the white matter. Thalamus, basal ganglia and brainstem tissues are spared any measurable chronic ischemic change. There is some cerebellar atrophy present similar to the cerebral atrophy. No globe or orbital content abnormality. No sella or supra sella abnormality. Mastoid air cells and paranasal sinuses are clear. Small left frontal scalp hematoma present. IMPRESSION: No acute infarction changes are present. No hemorrhage, mass or acute intracranial finding. Patient has mild atrophy and mild chronic ischemic change. Carotid doppler: Ankle xray: FINDINGS: No fracture, dislocation or periosteal reaction. No joint effusion seen. No joint space narrowing. No soft tissue abnormality. Lateral soft tissue swelling is present. IMPRESSION: Soft tissue swelling with no left ankle fracture. CT spine: FINDINGS: Cervical bodies are normal in height. There is a very slight anterior subluxation of C3 on C4. This disc space is also narrowed slightly. Significant disc space narrowing at C5-6 and C6-7. No fracture or acute bony abnormality. No pathologic bone process. Facet joint degenerative changes are present throughout the cervical spine. Changes are very pronounced on the left at C3-4 where there is significant bony foraminal stenosis. Mild to moderate bilateral foraminal stenosis at C5-6 and C6-7. Posterior endplate spurring at both of these levels creating borderline spinal stenosis. Central canal detail is inherently limited. Exam has some motion degradation. IMPRESSION: No fracture or acute cervical spine finding. Degenerative changes are present with borderline spinal stenosis at C5-6 and C6- 7. Significant left foraminal stenosis C3-4 with mild to moderate foraminal stenosis bilaterally at C5-6 and C6-7. CXR: FINDINGS: Lungs are clear. Heart and vasculature are normal. No measurable pleural effusion and no pneumothorax. No acute bony abnormality seen. No acute aortic findings suspected. IMPRESSION: No acute cardiopulmonary process. 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 This started the night before. Deficits have resolved. He also reported in follow up. Patient came to the ER further evaluation. Alcohol level elevated. Potassium, magnesium and blood sugar was low. Patient was admitted for observation. Initial CT head unremarkable. Hospital Course: Patient presents with paresthesias to the left side. When the patient was initially evaluated emergency room symptoms had resolved. Initial CT scan unremarkable. Patient found to have elevated alcohol level with hypocalcemia and hypomagnesemia. Patient appeared malnourished. Patient was admitted for further evaluation and monitoring. Patient reported fall. He did have a small left frontal scalp hematoma. Patient did well during the course of his stay. MRI of brain showed no acute stroke. Patient reassessed. Patient appropriate with the symptoms resolved. Patient had a fall in the hospital. X-ray showed a left ankle sprain. No fracture noted. Patient desired discharge. Patient is safe to be discharged at this time. At discharge will recommend that he continue with aspirin 81 mg daily, thiamine 100 mg daily, folic acid 1 mg daily and fish oil 1000 mcg twice daily. Recommend follow up with a PCP to follow up his hospitalization. A list of providers will be given. Fall precautions in place. Patient will be provided crutches to help with mobility. Patient may require orthopedic evaluation as an outpatient to further monitor his left ankle sprain. He may use ice to the area 3 times a day for 15 min to help with swelling. Recommend alcohol cessation over time. Patient desires to quit. He will wean off slowly. Patient had elevated liver function likely related to alcohol abuse. Alcohol cessation addressed as above. Patient plans to quit. It was recommended that he weaned off alcohol slowly. This is to prevent alcoholic DTs. Patient understands. Recommend a recheck liver function tests, CMP and 1-2 weeks to monitor his progress. Patient would benefit with a GI evaluation in the future. Carotid Doppler showed some carotid arterial disease the without significant stenosis. As recommended above patient will continue with aspirin 81 mg daily. Patient has CT not showing degenerative disk and joint disease of the C-spine with foraminal stenosis and spinal stenosis. Patient may follow up with his PCP to further address. Patient may take Tylenol over the counter as needed for pain. Patient will have to limit Tylenol use to less than 2 g per day. Patient with chronic dermatitis to the back. Recommend antibacterial soap twice daily. Patient may use Bactroban ointment to the skin twice daily. Recommend follow up with dermatology as an outpatient. Vital Signs/Physical Exam: Temp Pulse Resp BP Pulse Ox 98.1 F 76 18 137/72 98 08/13/19 16:00 08/13/19 16:00 08/13/19 16:00 08/13/19 16:00 08/13/19 16:00 General: Alert, In no apparent distress, Oriented x3, Cooperative HEENT: Other (Left frontal hematoma) Neck: Supple Respiratory: Clear to auscultation bilaterally, Normal air movement Cardiovascular: Normal pulses, Regular rate/rhythm Gastrointestinal: Normal bowel sounds, Soft and benign, Non-distended, No tenderness, No masses, No rebound, No guarding Musculoskeletal: No tenderness, No warmth Integumentary: Tenderness/swelling (Mild swelling to the left ankle), Other ( Chronic dermatitis to the back) Neurological: Normal speech, Normal strength at 5/5 x4 extr, Normal tone, Normal affect Laboratory Data at Discharge: WBC 5.8 K/uL (4.3-10.9) 08/13/19 10:20 Hgb 16.6 g/dL (13.6-17.9) 08/13/19 10:20 Hct 48.2 % (39.6-49.0) 08/13/19 10:20 Plt Count 114 K/uL (152-406) L 08/13/19 10:20 PT 11.2 SECONDS (9.5-12.5) 08/13/19 10:20 INR 0.95 08/13/19 10:20 APTT 36.7 SECONDS (24.3-36.9) 08/13/19 10:21 Sodium 141 mmol/L (136-145) 08/13/19 10:20 Potassium 3.2 mmol/L (3.5-5.1) L 08/13/19 10:20 BUN 4 mg/dL (7-18) L 08/13/19 10:20 Creatinine 0.55 mg/dL (0.55-1.3) 08/13/19 10:20 Glucose 69 mg/dL (74-106) L 08/13/19 10:20 Magnesium 1.7 mg/dL (1.8-2.4) L 08/13/19 10:20 Total Bilirubin 1.0 mg/dL (0.2-1.0) 08/13/19 10:20 AST 129 U/L (15-37) H 08/13/19 10:20 ALT 104 U/L (12-78) H 08/13/19 10:20 Alkaline Phosphatase 96 U/L (45-117) 08/13/19 10:20 Triglycerides 86 mg/dL (<150) 08/13/19 10:20 Cholesterol 159 mg/dL (<200) 08/13/19 10:20 HDL Cholesterol 91 mg/dL (40-60) H 08/13/19 10:20 Cholesterol/HDL Ratio 1.75 08/13/19 10:20 Home Medications: Aspirin Chewable [Aspirin Chewable*] 81 mg PO DAILY #90 tab.chew 08/13/19 Folic Acid 1 mg PO DAILY #90 tablet 08/13/19 Mupirocin Oint [Bactroban 2% Ointment] 8 appl TOP BID #1 tube 08/13/19 [place]-3 Fatty Acids/Fish Oil [Fish Oil 1,000 mg Softgel] 1 each PO BID #60 capsule 08/13/19 Thiamine HCl 100 mg PO DAILY #90 tablet 12/13/19 New Medications: Aspirin Chewable [Aspirin Chewable*] 81 mg PO DAILY #90 tab.chew Folic Acid 1 mg PO DAILY #90 tablet Mupirocin Oint [Bactroban 2% Ointment] 8 appl TOP BID #1 tube [place]-3 Fatty Acids/Fish Oil [Fish Oil 1,000 mg Softgel] 1 each PO BID #60 capsule Thiamine HCl 100 mg PO DAILY #90 tablet Patient Discharge Instructions: 1. Recommend followup with a PCP to follow up hospitalization. 2. Patient presents with paresthesias to the left side. When the patient was initially evaluated emergency room symptoms had resolved. Initial CT scan unremarkable. Patient found to have elevated alcohol level with hypocalcemia and hypomagnesemia. Patient appeared malnourished. Patient was admitted for further evaluation and monitoring. Patient reported fall. He did have a small left frontal scalp hematoma. Patient did well during the course of his stay. MRI of brain showed no acute stroke. Patient reassessed. Patient appropriate with the symptoms resolved. Patient had a fall in the hospital. X-ray showed a left ankle sprain. No fracture noted. Patient desired discharge. Patient is safe to be discharged at this time. At discharge will recommend that he continue with aspirin 81 mg daily, thiamine 100 mg daily, folic acid 1 mg daily and fish oil 1000 mcg twice daily. Recommend follow up with a PCP to follow up his hospitalization. A list of providers will be given. Fall precautions in place. Patient will be provided crutches to help with mobility. Patient may require orthopedic evaluation as an outpatient to further monitor his left ankle sprain. He may use ice to the area 3 times a day for 15 min to help with swelling. Recommend alcohol cessation over time. Patient desires to quit. He will wean off slowly. 3. Patient had elevated liver function likely related to alcohol abuse. Alcohol cessation addressed as above. Patient plans to quit. It was recommended that he weaned off alcohol slowly. This is to prevent alcoholic DTs. Patient understands. Recommend a recheck liver function tests, CMP and 1-2 weeks to monitor his progress. Patient would benefit with a GI evaluation in the future. 4. Carotid Doppler showed some carotid arterial disease the without significant stenosis. As recommended above patient will continue with aspirin 81 mg daily. 5. Patient has CT not showing degenerative disk and joint disease of the C-spine with foraminal stenosis and spinal stenosis. Patient may follow up with his PCP to further address. Patient may take Tylenol over the counter as needed for pain. Patient will have to limit Tylenol use to less than 2 g per day. 6. Patient with chronic dermatitis to the back. Recommend antibacterial soap twice daily. Patient may use Bactroban ointment to the skin twice daily. Recommend follow up with dermatology as an outpatient. Diet: AHA Activity: Fall precautions Time spent managing pt's care (in minutes): 55
[2019-08-13 20:04] VITALS: BP 143/83; TEMP 98.2
[2019-08-13] MEDS ORDERED: ATORVASTATIN 40 MG TAB PO SCH (21:00)
[2019-08-14] MEDS ORDERED: ASPIRIN 81 MG CHEWABLE TABLET PO SCH (09:00)
== END 2019-08-13 20:45 | disposition home or self-care (01) ==
LOC: ER 09:32 → ERHOLD 12:54 → 4TH 14:50
PROVIDERS: ADMIT Family Medicine; ATTEND Family Medicine
DX: R20.2 Paresthesia of skin (principal); F10.10 Alcohol abuse, uncomplicated; E87.6 Hypokalemia; E83.42 Hypomagnesemia; S00.03XA Contusion of scalp, initial encounter; S93.402A Sprain of unspecified ligament of left ankle, initial encounter; R79.89 Other specified abnormal findings of blood chemistry; E83.51 Hypocalcemia; E46 Unspecified protein-calorie malnutrition; Z68.24 Body mass index [BMI] 24.0-24.9, adult; I77.89 Other specified disorders of arteries and arterioles; M50.322 Other cervical disc degeneration at C5-C6 level; M48.02 Spinal stenosis, cervical region; M50.323 Other cervical disc degeneration at C6-C7 level; W18.30XA Fall on same level, unspecified, initial encounter; Y92.9 Unspecified place or not applicable; L30.9 Dermatitis, unspecified
CPT/HCPCS: 36415; 70450; 70551; 71045; 72125; 80048; 80061; 80076; 80307; 80320; 80329; 81003; 83735; 83880; 84484; 85025; 85610; 85730; 93005; 93880; 96365; 96366; 96367; 96368; 96375; 99285; G0378; J1650; J3411; J3475; J7030

== ENCOUNTER 2020-08-05 19:13 | Emergency (ER) | payer BC ==
--- OUTSIDE RECORDS SUMMARY | 2020-08-05 19:16 | XMS REPORT | Continuity of Care Document ---
:1960 Author Organization [facility] t Address [address] [place] [address] Care Team Providers Name Role Phone Unavailable Unavailable Unavailable Problems This patient has no known problems. Allergies, Adverse Reactions, Alerts This patient has no known allergies or adverse reactions. Medications This patient has no known medications. Procedures This patient has no known procedures. Encounters Start End Encounter Admission Attending Care Care Encounter Source Date/Time Date/Time Type Type Clinicians Facility Department ID 2019-05-13 2019-05-13 Outpatient [id number] 17:18:00 17:18:00 2019-05-13 2019-05-13 Inpatient [facility] [id number] [facility] 15:47:00 15:01:00 Results This patient has no known results.
--- NOTE | 2020-08-05 19:29 | EDPHYS ---
Physician Documentation [facility] Name: Jacob Pearson Age: 60 yrs Sex: Male : 1960 Arrival Date: 08/05/2020 Time: 19:22 Bed 18 Private MD: ED Physician Siddharth Rowe HPI: 08/06 01:59 This 60 yrs old Male presents to ER via EMS with complaints of Laceration To tw4 Head. 01:59 The patient or guardian reports injury. The complaints affect the right eye. Context of tw4 injury: The problem was sustained at home, resulted from a fall, while walking. Onset: The symptoms/episode began/occurred today. Associated signs and symptoms: Loss of consciousness: This patient did not experience any loss of consciousness. The patient has not experienced similar symptoms in the past. Historical: - Allergies: 08/05 19:28 Cortisone; ph - PMHx: 19:28 Atrial Fib; cardiac stents; R knee; TIA; ph - PSHx: 19:28 cardiac stents; R knee; ph - Immunization history:: Last tetanus immunization: up to date. - Social history:: Smoking status: Patient reports the use of cigarette tobacco products, smokes one-half pack cigarettes per day. ROS: 08/06 01:59 Constitutional: Negative for fever, chills, and weight loss, Eyes: Negative for injury, tw4 pain, redness, and discharge, Cardiovascular: Negative for chest pain, palpitations, and edema, Respiratory: Negative for shortness of breath, cough, wheezing, and pleuritic chest pain, Abdomen/GI: Negative for abdominal pain, nausea, vomiting, diarrhea, and constipation, Back: Negative for injury and pain, Skin: Negative for injury, rash, and discoloration, Neuro: Negative for headache, weakness, numbness, tingling, and seizure. Exam: 01:59 Constitutional: This is a well developed, well nourished patient who is awake, alert, tw4 and in no acute distress. 01:59 Cardiovascular: Regular rate and rhythm with a normal S1 and S2. No gallops, murmurs, or rubs. Normal PMI, no JVD. No pulse deficits. Respiratory: Lungs have equal breath sounds bilaterally, clear to auscultation and percussion. No rales, rhonchi or wheezes noted. No increased work of breathing, no retractions or nasal flaring. Abdomen/GI: Soft, non-tender, with normal bowel sounds. No distension or tympany. No guarding or rebound. No evidence of tenderness throughout. Back: No spinal tenderness. No costovertebral tenderness. Full range of motion. MS/ Extremity: Pulses equal, no cyanosis. Neurovascular intact. Full, normal range of motion. Neuro: Awake and alert, GCS 15, oriented to person, place, time, and situation. Cranial nerves II-XII grossly intact. Motor strength 5/5 in all extremities. Sensory grossly intact. Cerebellar exam normal. Normal gait. 01:59 Head/face: Noted is abrasion(s), that are moderate, a laceration(s), that is deep, 3 cm(s), of the right eye. Vital Signs: 08/05 19:28 BP 110 / 71; Pulse 90; Resp 18; Temp 98.0; Pulse Ox 95% ; Pain 0/10; ph Marilyn Coma Score: 08/06 01:59 Eye Response: spontaneous(4). Verbal Response: oriented(5). Motor Response: obeys tw4 commands(6). Total: 15. 01:59 Eye Response: spontaneous(4). Verbal Response: oriented(5). Motor Response: obeys tw4 commands(6). Total: 15. MDM: 08/05 19:26 Patient medically screened. tw4 08/06 01:59 Differential diagnosis: Contusion of head, Hematoma on head, Intracranial bleed- tw4 subdural, epidural, subarachnoid, Concussion without LOC. cerebral contusion. Data reviewed: vital signs, nurses notes. Counseling: I had a detailed discussion with the patient and/or guardian regarding: the historical points, exam findings, and any diagnostic results supporting the discharge/admit diagnosis. Refusal of service: The patient/guardian displays adequate decision making capability and despite a detailed discussion of alternatives, benefits, risks, and consequences refuses: CT Scan. Administered Medications: No medications were administered Disposition: 08/05/20 19:28 Patient has left against medical advice. Impression: Crushing injury of head, part unspecified, Contusion of other part of head, Laceration of muscle and tendon of head. - Patients states they are going to Home. - Condition is Stable. - Discharge Instructions: Contusion, Head Injury, Adult, [id number]. Follow up: Private Physician; When: Upon discharge from the Emergency Department; Reason: Recheck today's complaints, Continuance of care, Re-evaluation by your physician. - Problem is new. - Symptoms have improved. Signatures: Dispatcher [employer] EDGay Wilder RN RN Siddharth Rowe MD MD tw4 Isael Retana RN RN ll1 Corrections: (The following items were deleted from the chart) 08/05 19:35 19:28 08/05/2020 19:28 Patients has left against medical advice. Impression: Crushing ll1 injury of head, part unspecified; Contusion of other part of head; Laceration of muscle and tendon of head. Patient states they are going to Home. Condition is Stable. Follow up: Private Physician; When: Upon discharge from the Emergency Department; Reason: Recheck today's complaints, Continuance of care, Re-evaluation by your physician. Problem is new. Symptoms have improved. tw4
--- NOTE | 2020-08-05 19:29 | ER ---
Nurse's Notes [facility] Name: Jacob Pearson Age: 60 yrs Sex: Male : 1960 Arrival Date: 08/05/2020 Time: 19:22 Bed 18 Private MD: Diagnosis: Crushing injury of head, part unspecified;Contusion of other part of head;Laceration of muscle and tendon of head Presentation: 08/05 19:28 Chief complaint: Patient states: Found on ground. Head injury/abrasions noted. Denies ph LOC. Wants to leave without CT. Dr. Rowe at bedside. Coronavirus screen: Client denies travel out of the [place] in the last 14 days. At this time, the client does not indicate any symptoms associated with coronavirus-19. Ebola Screen: Patient denies travel to an Ebola-affected area in the 21 days before illness onset. Initial Sepsis Screen: Does the patient meet any 2 criteria? No. Patient's initial sepsis screen is negative. Does the patient have a suspected source of infection? No. Patient's initial sepsis screen is negative. Risk Assessment: Do you want to hurt yourself or someone else? Patient reports no desire to harm self or others. Onset of symptoms was August 05, 2020. 19:28 Method Of Arrival: Ambulatory 19:28 Method Of Arrival: EMS: [facility] 19:28 Acuity: YOSI 3 ph Historical: - Allergies: 19:28 Cortisone; ph - PMHx: 19:28 Atrial Fib; cardiac stents; R knee; TIA; ph - PSHx: 19:28 cardiac stents; R knee; ph - Immunization history:: Last tetanus immunization: up to date. - Social history:: Smoking status: Patient reports the use of cigarette tobacco products, smokes one-half pack cigarettes per day. Screenin:33 Abuse screen: Denies threats or abuse. Nutritional screening: No deficits noted. ph Tuberculosis screening: No symptoms or risk factors identified. Fall Risk Secondary diagnosis (15 points) TIA, Gait- Impaired (20 pts.). Total Wilkins Fall Scale indicates Low Risk Score (25-44 pts). Fall prevention measures have been instituted. Side Rails Up X 2 As available Patient and Family Educated on Fall Prevention Program and strategies. Assessment: 19:26 Reassessment: pt ambulatory with steady gait, walking briskly after EMS staff claiming sg they are leaving with his personal belongings. pt informed that his belongings are at the bedside, pt stated understanding and ambulatory back to exam room. pt states he would like to leave AMA because hes been here multiple times and dx with TIA. pt aa\T\ox4 at this time, states he really would like to just go home because he needs to rest for work in the AM. Vital Signs: 19:28 BP 110 / 71; Pulse 90; Resp 18; Temp 98.0; Pulse Ox 95% ; Pain 0/10; ph [place] Coma Score: 08/06 01:59 Eye Response: spontaneous(4). Verbal Response: oriented(5). Motor Response: obeys tw4 commands(6). Total: 15. 01:59 Eye Response: spontaneous(4). Verbal Response: oriented(5). Motor Response: obeys tw4 commands(6). Total: 15. ED Course: 08/05 19:22 Patient arrived in ED. mw2 19:26 Siddharth Rowe MD is Attending Physician. tw4 19:27 Arm band placed on. ph 19:31 Triage completed. ph 19:34 Isael Retana, JEREL is Primary Nurse. ll1 Administered Medications: No medications were administered Outcome: 19:34 AMA AMA form signed ll1 19:34 Condition: stable 19:34 Instructed on AMA form Demonstrated understanding of instructions, AMA form 19:35 Patient left the ED. ll1 Signatures: Juan Snow, JEREL BELTRÁN Gay Dickey RN RN Siddharth Rowe MD MD 4 Justus Minaya mw2 Isael Retana RN RN 1
[2020-08-10 05:07] VITALS: BP 110/71; TEMP 98; O2SAT 95
== END 2020-08-05 19:35 | disposition left against medical advice (07) ==
LOC: ER 19:13
DX: S01.81XA Laceration without foreign body of other part of head, initial encounter (principal); X58.XXXA Exposure to other specified factors, initial encounter; Y93.01 Activity, walking, marching and hiking; Y92.009 Unspecified place in unspecified non-institutional (private) residence as the place of occurrence of the external cause; Z88.8 Allergy status to other drugs, medicaments and biological substances; Z95.818 Presence of other cardiac implants and grafts; F17.210 Nicotine dependence, cigarettes, uncomplicated
CPT/HCPCS: 99283

== ENCOUNTER 2020-10-27 16:32 | Emergency (ER) | payer BC ==
--- OUTSIDE RECORDS SUMMARY | 2020-10-27 17:50 | XMS REPORT | Continuity of Care Document ---
:1960 Author Organization [facility] t Address [address] [place] [address] Care Team Providers Name Role Phone Unavailable [...] Clinicians Facility Department ID 2019-05-13 2019-05-13 Outpatient [facility] [id number] [facility] 17:18:00 17:18:00 2019-05-13 2019-05-13 Inpatient E [facility] [id number] [facility] 15:47:00 15:01:00 Results This patient has no known results.
--- NOTE | 2020-10-27 18:30 | ER ---
Nurse's Notes [facility] Name: Jacob Pearson Age: 60 yrs Sex: Male : 1960 Arrival Date: 10/27/2020 Time: 16:46 Bed 20 Private MD: Diagnosis: Laceration without foreign body of scalp;Superficial injury of head;Syncope and collapse Presentation: 10/27 16:48 Chief complaint: Patient states: Blacked out at work for just a couple seconds. ll1 Hematoma with small laceration to back of head. Alert and oriented upon EMS arrival. His co-workers had to convince him to come in and get checked. EMS states: BP 160/99. On aspirin and lasix. Coronavirus screen: Client denies travel out of the [place] in the last 14 days. At this time, the client does not indicate any symptoms associated with coronavirus-19. Ebola Screen: Patient denies travel to an Ebola-affected area in the 21 days before illness onset. Initial Sepsis Screen: Does the patient meet any 2 criteria? No. Patient's initial sepsis screen is negative. Does the patient have a suspected source of infection? Yes: Other: head injury/syncope. Risk Assessment: Do you want to hurt yourself or someone else? Patient reports no desire to harm self or others. Onset of symptoms was October 27, 2020. 16:48 Method Of Arrival: EMS ll1 16:48 Acuity: YOSI 3 ll1 Historical: - Allergies: 16:48 Cortisone; ll1 - PMHx: 16:48 Atrial Fib; cardiac stents; R knee; TIA; ll1 - PSHx: 16:48 cardiac stents; R knee; ll1 - Immunization history:: Adult Immunizations up to date. - Social history:: Smoking status: Patient reports the use of cigarette tobacco products, smokes one pack cigarettes per day. Assessment: 18:27 General: Appears in no apparent distress. comfortable, Behavior is cooperative, dm14 appropriate for age, anxious. Pain: Denies pain. Neuro: No deficits noted. Derm: Wound noted Laceration to back of head, slightly gaping. Vital Signs: 16:48 Resp 18; ll1 16:58 Pulse 99; Resp 17; Temp 98.3; Pulse Ox 100% ; Weight 70.31 kg; Height 6 ft. 0 in. ll1 (182.88 cm); Pain 0/10; 16:58 BP 145 / 97; ll1 16:58 Body Mass Index 21.02 (70.31 kg, 182.88 cm) ll1 NIH Stroke Scale Scores: 16:58 NIHSS Score: 0 ll1 ED Course: 16:46 Patient arrived in ED. ll1 16:48 Arm band placed on. ll1 16:50 Triage completed. ll1 17:46 Sujatha Lucero FNP-C is [facility]. kb 17:46 Kal Vallejo MD is Attending Physician. kb 17:51 Cassidy Mcmillan RN is Primary Nurse. dm14 18:40 Patient did not have IV access during this emergency room visit. ss Administered Medications: No medications were administered Outcome: 18:40 Eloped from patient exam room, after seeing physician ss 18:40 Condition: stable 18:41 Patient left the ED. NIH Stroke Scale - NIH Stroke Score Date: 10/27/2020 Time: 16:58 Total Score = 0 1a. Level of Consciousness (LOC) - 0(Alert) 1b. Level of Consciousness (LOC) (Year \T\ Age) - 0(Both) 1c. LOC Commands (Open \T\ Closes Eyes/Electrical Engineering Director) - 0(Both) 2. Best Gaze (Lateral Gaze Paresis) - 0(Normal) 3. Visual Field Loss - 0(No visual loss) 4. Facial Palsy - 0(Normal) 5a. Left Arm: Motor (10-second hold) - 0(No drift) 5b. Right Arm: Motor (10-second hold) - 0(No drift) 6a. Left Leg: Motor (5-second hold - always test supine) - 0(No drift) 6b. Right Leg: Motor (5-second hold - always test supine) - 0(No drift) 7. Limb Ataxia (finger/nose \T\ heel/oliver - test with eyes open) - 0(Absent) 8. Sensory Loss (pinprick arms/legs/face) - 0(Normal) 9. Best Language: Aphasia (description/naming/reading) - 0(No aphasia) 10. Dysarthria (speech clarity - read or repeat words) - 0(Normal) 11. Extinction and Inattention (visual/tactile/auditory/spatial/personal) - 0(No abnormality) Initials: ll1 Signatures: Sujatha Lucero, [employer] REPAIRERS-C [employer]PA[employer]-Ckb Monae Westfall, RN RN ss Isael Retana, RN RN ll1 Cassidy Mcmillan, RN RN dm14
--- NOTE | 2020-10-27 18:30 | EDPHYS ---
Physician Documentation [facility] Name: Jacob Pearson Age: 60 yrs Sex: Male : 1960 Arrival Date: 10/27/2020 Time: 16:46 Bed 20 Private MD: ED Physician Kal Vallejo HPI: 10/27 17:57 This 60 yrs old Male presents to ER via EMS with complaints of Syncope, kb Closed Head Injury-Adult. 17:57 The patient has experienced syncope, collapsed. Onset: The symptoms/episode kb began/occurred today. Duration: This was a single episode, that lasted 2 second(s). Context: the episode(s) was witnessed, by co-worker(s), occurred at work, occurred while the patient was standing, Just prior to the episode the patient experienced no apparent symptoms. Associated injury: Head/face: right occipital area, laceration. Associated signs and symptoms: The patient has no apparent associated signs or symptoms. Current symptoms: Currently, the patient is not experiencing any symptoms, the patient feels back to baseline, no decreased level of consciousness, no confusion, no dysphasia, no headache, no paralysis, no visual changes. The patient has experienced similar episodes in the past, several times. The patient has not recently seen a physician. Historical: - Allergies: 16:48 Cortisone; ll1 - PMHx: 16:48 Atrial Fib; cardiac stents; R knee; TIA; ll1 - PSHx: 16:48 cardiac stents; R knee; ll1 - Immunization history:: Adult Immunizations up to date. - Social history:: Smoking status: Patient reports the use of cigarette tobacco products, smokes one pack cigarettes per day. ROS: 17:57 Constitutional: Negative for fever, chills, and weight loss, Cardiovascular: Negative kb for chest pain, palpitations, and edema, Respiratory: Negative for shortness of breath, cough, wheezing, and pleuritic chest pain, Abdomen/GI: Negative for abdominal pain, nausea, vomiting, diarrhea, and constipation, MS/Extremity: Negative for injury and deformity. 17:57 Skin: Positive for hematoma, laceration(s), of the scalp. 17:57 Neuro: Positive for syncope. Exam: 18:02 Constitutional: This is a well developed, well nourished patient who is awake, alert, kb and in no acute distress. Cardiovascular: Regular rate and rhythm with a normal S1 and S2. No gallops, murmurs, or rubs. Normal PMI, no JVD. No pulse deficits. Respiratory: Lungs have equal breath sounds bilaterally, clear to auscultation and percussion. No rales, rhonchi or wheezes noted. No increased work of breathing, no retractions or nasal flaring. Abdomen/GI: Soft, non-tender, with normal bowel sounds. No distension or tympany. No guarding or rebound. No evidence of tenderness throughout. MS/ Extremity: Pulses equal, no cyanosis. Neurovascular intact. Full, normal range of motion. Neuro: Awake and alert, GCS 15, oriented to person, place, time, and situation. Cranial nerves II-XII grossly intact. Motor strength 5/5 in all extremities. Sensory grossly intact. Cerebellar exam normal. Normal gait. Vital Signs: 16:48 Resp 18; ll1 16:58 Pulse 99; Resp 17; Temp 98.3; Pulse Ox 100% ; Weight 70.31 kg; Height 6 ft. 0 in. ll1 (182.88 cm); Pain 0/10; 16:58 BP 145 / 97; ll1 16:58 Body Mass Index 21.02 (70.31 kg, 182.88 cm) ll1 NIH Stroke Scale Scores: 16:58 NIHSS Score: 0 ll1 Laceration: 18:27 Wound Repair of 4cm ( 1.6in ) subcutaneous laceration to right occipital area. Linear kb shaped.. Distal neuro/vascular/tendon intact. Wound prep: Moderate cleansing by nurse. Skin closed with 5 1-0 Smith using staple gun. Patient tolerated well. MDM: 17:46 Patient medically screened. kb 17:54 Data reviewed: vital signs, nurses notes. Data interpreted: Pulse oximetry: on room air kb is 100 %. Interpretation: normal. Refusal of service: The patient/guardian displays adequate decision making capability and despite a detailed discussion of alternatives, benefits, risks, and consequences refuses: CT Scan, all lab tests. ED course: Pt refuses CT, blood work and EKG. States "I've had all of that done before for this, I've been to several different hospitals and its just something that happens. I've had scans and MRIs that don't change anything. I just came to see if there was something that needs to be done to the back of my head. I feel fine and if I didn't hit my head I wouldn't have even come.". 18:27 ED course: Pt got up and left after josr placed to repair laceration. Did not want kb to wait any longer. Pt A\\T\\Ox4. Ambulated out of ED via steady gait. 10/27 17:47 Order name: Basic Metabolic Panel 10/27 17:47 Order name: CBC with Diff 10/27 17:47 Order name: Ckmb 10/27 17:47 Order name: CPK 10/27 17:47 Order name: Hepatic Function 10/27 17:47 Order name: EKG; Complete Time: 17:48 10/27 17:47 Order name: Cardiac monitoring 10/27 17:47 Order name: EKG - Nurse/Tech 10/27 17:47 Order name: IV Saline Lock 10/27 17:47 Order name: Labs collected and sent 10/27 17:47 Order name: NPO 10/27 17:47 Order name: O2 Per Protocol 10/27 17:47 Order name: O2 Sat Monitoring 10/27 17:47 Order name: Urine Dipstick-Ancillary (obtain specimen) Administered Medications: No medications were administered Disposition: 10/27/20 18:30 Patient left the facility after being seen by provider. Preliminary diagnosis are Laceration without foreign body of scalp, Superficial injury of head, Syncope and collapse. - Patient left due to (see nurse's notes). NIH Stroke Scale - NIH Stroke Score Date: 10/27/2020 Time: 16:58 Total Score = 0 1a. Level of Consciousness (LOC) - 0(Alert) 1b. Level of Consciousness (LOC) (Year \\T\\ Age) - 0(Both) 1c. LOC Commands (Open \\T\\ Closes Eyes/Driver License Agent) - 0(Both) 2. Best Gaze (Lateral Gaze Paresis) - 0(Normal) 3. Visual Field Loss - 0(No visual loss) 4. Facial Palsy - 0(Normal) 5a. Left Arm: Motor (10-second hold) - 0(No drift) 5b. Right Arm: Motor (10-second hold) - 0(No drift) 6a. Left Leg: Motor (5-second hold - always test supine) - 0(No drift) 6b. Right Leg: Motor (5-second hold - always test supine) - 0(No drift) 7. Limb Ataxia (finger/nose \\T\\ heel/oliver - test with eyes open) - 0(Absent) 8. Sensory Loss (pinprick arms/legs/face) - 0(Normal) 9. Best Language: Aphasia (description/naming/reading) - 0(No aphasia) 10. Dysarthria (speech clarity - read or repeat words) - 0(Normal) 11. Extinction and Inattention (visual/tactile/auditory/spatial/personal) - 0(No abnormality) Initials: ll1 Addendum: 10/30/2020 05:10 Co-signature as Attending Physician, Kal Vallejo MD I agree with the [facility] assessment and plan of care. Signatures: Dispatcher [employer] EDMS Sujatha Lucero, WELLNESS PROGRAM COORDINATOR-C WELLNESS PROGRAM COORDINATOR-CkKal Rosas MD MD [facility] Monae Westfall RN RN ss Isael Retana RN RN 1 Corrections: (The following items were deleted from the chart) 10/27 18:41 18:30 10/27/2020 18:30 Patient left the facility after being seen by provider. ss Preliminary diagnosis is Laceration without foreign body of scalp; Superficial injury of head; Syncope and collapse. Reason stated they are leaving due to (see nurse's notes). kb
[2020-10-27 19:36] VITALS: BP 145/97; TEMP 98.3; O2SAT 100
== END 2020-10-27 18:41 | disposition left against medical advice (07) ==
LOC: ER 16:32
PROC: 0JQ00ZZ Repair Scalp Subcutaneous Tissue and Fascia, Open Approach (ICD-10-PCS; principal; 2020-10-27)
DX: S01.01XA Laceration without foreign body of scalp, initial encounter (principal); F17.210 Nicotine dependence, cigarettes, uncomplicated; Z95.818 Presence of other cardiac implants and grafts; Z88.8 Allergy status to other drugs, medicaments and biological substances
CPT/HCPCS: 99282

== ENCOUNTER 2020-11-03 10:12 | Emergency (ER) | payer BC ==
--- OUTSIDE RECORDS SUMMARY | 2020-11-03 10:15 | XMS REPORT | Continuity of Care Document ---
:1960 Author Organization [facility] t Address [address] [place] [address] Care Team Providers Name Role Phone Unavailable [...] Clinicians Facility Department ID 2019-05-13 2019-05-13 Outpatient [facility] [id number] [facility] 17:18:00 17:18:00 2019-05-13 2019-05-13 Inpatient E [facility] [address] [facility] 15:47:00 15:01:00 Results This patient has no known results.
--- NOTE | 2020-11-03 11:02 | ER ---
Nurse's Notes [facility] Name: Jacob Pearson Age: 60 yrs Sex: Male : 1960 Arrival Date: 11/03/2020 Time: 10:13 Bed 19 Private MD: Diagnosis: Encounter for removal of sutures Presentation: 11/03 10:21 Chief complaint: Patient states: had a TIA last Friday and fell and hit his head. had 5 iw josr placed in back of head, needs them removed. Coronavirus screen: At this time, the client does not indicate any symptoms associated with coronavirus-19. Ebola Screen: Patient negative for fever greater than or equal to 101.5 degrees Fahrenheit, and additional compatible Ebola Virus Disease symptoms Patient denies exposure to infectious person. Patient denies travel to an Ebola-affected area in the 21 days before illness onset. No symptoms or risks identified at this time. Initial Sepsis Screen: Does the patient meet any 2 criteria? No. Patient's initial sepsis screen is negative. Does the patient have a suspected source of infection? No. Patient's initial sepsis screen is negative. Risk Assessment: Do you want to hurt yourself or someone else? Patient reports no desire to harm self or others. Onset of symptoms was October 27, 2020. 10:21 Method Of Arrival: Ambulatory iw 10:21 Acuity: YOSI 4 iw Historical: - Allergies: 10:23 Cortisone; iw - Home Meds: 10:23 aspirin 81 mg Oral chew 1 tab once daily [Active]; iw - PMHx: 10:23 Atrial Fib; cardiac stents; R knee; TIA; iw - PSHx: 10:23 cardiac stents; R knee; iw - Immunization history:: Adult Immunizations up to date. - Social history:: Smoking status: Patient reports the use of cigarette tobacco products, smokes three packs cigarettes per day. cigars. Screenin:30 Abuse screen: Denies threats or abuse. Denies injuries from another. Nutritional dm14 screening: No deficits noted. Tuberculosis screening: No symptoms or risk factors identified. Fall Risk Fall in past 12 months (25 points). Assessment: 10:30 General: Appears in no apparent distress. comfortable, Behavior is calm, cooperative, dm14 appropriate for age. Pain: Denies pain. 11:05 Reassessment: Patient appears in no apparent distress at this time. Patient and/or iw family updated on plan of care and expected duration. Pain level reassessed. Patient is alert, oriented x 3, equal unlabored respirations, skin warm/dry/pink. Vital Signs: 10:21 BP 135 / 100; Pulse 99; Resp 16; Temp 97.5; Pulse Ox 98% on R/A; iw 10:30 BP 135 / 100; Pulse 91; Resp 18; Pulse Ox 97% ; dm14 ED Course: 10:13 Patient arrived in ED. am2 10:13 Trey Buitrago PA is PHCP. m 10:13 Kal Vallejo MD is Attending Physician. m 10:22 Triage completed. iw 10:28 Cassidy Mcmillan, JEREL is Primary Nurse. dm14 10:30 Patient has correct armband on for positive identification. Bed in low position. dm14 11:05 Arm band placed on. iw 11:05 No provider procedures requiring assistance completed. Patient did not have IV access iw during this emergency room visit. Administered Medications: No medications were administered Outcome: 11:01 Discharge ordered by MD. [facility] 11:05 Discharged to home ambulatory. iw 11:05 Condition: good 11:05 Discharge instructions given to patient, Instructed on discharge instructions, follow up and referral plans. Demonstrated understanding of instructions, follow-up care. 11:05 Patient left the ED. iw Signatures: Trey Buitrago PA PA jmm Williams, Irene, RN RN iw Brenda Wood am2 Cassidy Mcmillan, JREEL RN dm14
--- NOTE | 2020-11-03 11:02 | EDPHYS ---
Physician Documentation [facility] Name: Jacob Pearson Age: 60 yrs Sex: Male : 1960 Arrival Date: 11/03/2020 Time: 10:13 Bed 19 Private MD: ED Physician Kal Vallejo HPI: 11/03 10:41 This 60 yrs old Male presents to ER via Ambulatory with complaints of Staple jmm Removal. 10:41 The patient has josr on the scalp. Previous treatment: The patient was initially jmm treated 7 day(s) ago. Sutures/josr progress: The patient has no c/o's. The wound is well-healing with no redness, swelling, discharge, or dehiscence reported. Patient reports TIA 1 week ago. He reports 5 josr were placed at that time. He presents for removal. Wound is dry, clean, and intact. 5 josr are visualized. . Historical: - Allergies: 10:23 Cortisone; iw - Home Meds: 10:23 aspirin 81 mg Oral chew 1 tab once daily [Active]; iw - PMHx: 10:23 Atrial Fib; cardiac stents; R knee; TIA; iw - PSHx: 10:23 cardiac stents; R knee; iw - Immunization history:: Adult Immunizations up to date. - Social history:: Smoking status: Patient reports the use of cigarette tobacco products, smokes three packs cigarettes per day. cigars. ROS: 10:43 Eyes: Negative for injury, pain, redness, and discharge, Cardiovascular: Negative for jmm chest pain, palpitations, and edema, Respiratory: Negative for shortness of breath, cough, wheezing, and pleuritic chest pain, Abdomen/GI: Negative for abdominal pain, nausea, vomiting, diarrhea, and constipation, MS/Extremity: Negative for injury and deformity. 10:43 Skin: Positive for laceration(s), of the scalp. Exam: 10:43 Chest/axilla: Normal chest wall appearance and motion. Cardiovascular: Regular rate jmm and rhythm. No edema appreciated Respiratory: Normal respirations, no respiratory distress appreciated Abdomen/GI: Non distended, soft MS/ Extremity: Moves all extremities, no obvious deformities appreciated, no edema noted to the lower extremities Neuro: Awake and alert, normal gait 10:43 Head/face: Noted is a laceration(s), of the posterior occipital area, of the scalp, 5 josr present. Removal showed scant serosanginous discharge. . Vital Signs: 10:21 BP 135 / 100; Pulse 99; Resp 16; Temp 97.5; Pulse Ox 98% on R/A; iw 10:30 BP 135 / 100; Pulse 91; Resp 18; Pulse Ox 97% ; dm14 MDM: 10:38 Patient medically screened. [facility] 10:55 Data reviewed: vital signs, nurses notes. Counseling: I had a detailed discussion with dash the patient and/or guardian regarding: the historical points, exam findings, and any diagnostic results supporting the discharge/admit diagnosis, the need for outpatient follow up, to return to the emergency department if symptoms worsen or persist or if there are any questions or concerns that arise at home. ED course: Patient is alert and non toxic in appearance in the ED. No signs of infection. Given wound infection return precautions. Patient understood and agrees with the plan of care. . Administered Medications: No medications were administered Disposition: 16:48 Co-signature as Attending Physician, Kal Vallejo MD I agree with the assessment and kdr plan of care. Disposition: 11/03/20 11:01 Discharged to Home. Impression: Encounter for removal of sutures. - Condition is Stable. - Discharge Instructions: Suture Removal, Care After, Form - Return To Work. - Medication Reconciliation Form, Thank You Letter, Antibiotic Education, Prescription Opioid Use form. - Follow up: Private Physician; When: As needed; Reason: Recheck today's complaints, Continuance of care, Re-evaluation by your physician. Signatures: Kal Vallejo MD MD kdr Mickail, Joel, PA PA [facility] Maria Elena Velasquez RN RN Cassidy Mcmillan RN RN dm14 Corrections: (The following items were deleted from the chart) 11:05 11:01 11/03/2020 11:01 Discharged to Home. Impression: Encounter for removal of iw sutures. Condition is Stable. Forms are Medication Reconciliation Form, Thank You Letter, Antibiotic Education, Prescription Opioid Use. Follow up: Private Physician; When: As needed; Reason: Recheck today's complaints, Continuance of care, Re-evaluation by your physician. tiff
[2020-11-03 19:49] VITALS: BP 135/100; TEMP 97.5
[2020-11-03 19:50] VITALS: O2SAT 97
== END 2020-11-03 11:05 | disposition home or self-care (01) ==
LOC: ER 10:12
DX: Z48.02 Encounter for removal of sutures (principal)
CPT/HCPCS: 99281

== ENCOUNTER 2020-12-21 15:38 | Emergency (ER) | payer BC ==
--- OUTSIDE RECORDS SUMMARY | 2020-12-21 15:40 | XMS REPORT | Continuity of Care Document ---
:1960 Author Organization [facility] t Address [address] [place] [address] Care Team Providers Name Role Phone Unavailable [...] Clinicians Facility Department ID 2019-05-13 2019-05-13 Outpatient [facility] [id number] [facility] 17:18:00 17:18:00 2019-05-13 2019-05-13 Inpatient E [facility] [id number] [facility] 15:47:00 15:01:00 Results This patient has no known results.
--- NOTE | 2020-12-21 16:42 | ER ---
Nurse's Notes [facility] Name: Jacob Pearson Age: 60 yrs Sex: Male : 1960 Arrival Date: 12/21/2020 Time: 15:38 Bed 7 Private MD: Diagnosis: Syncope and collapse Presentation: 12/21 15:38 Chief complaint: EMS states: "pt reported that he was going to have a 'TIA.' so he went jd3 to the restroom. pt reports that he has these blackouts that he sees the Neurologist for and he calls them 'TIA's.' pt found in the bathroom after falling, with a short period of LOC with a potential hit to head. pt reports these happen all the time and wished to go back to work, but his co-workers convinced him to come to the ER. pt is fully awake, A\\T\\O X 4. stroke assessment was negative. pt denies pain.". Coronavirus screen: At this time, the client does not indicate any symptoms associated with coronavirus-19. Ebola Screen: Patient negative for fever greater than or equal to 101.5 degrees Fahrenheit, and additional compatible Ebola Virus Disease symptoms. Initial Sepsis Screen: Does the patient meet any 2 criteria? No. Patient's initial sepsis screen is negative. Does the patient have a suspected source of infection? No. Patient's initial sepsis screen is negative. Risk Assessment: Do you want to hurt yourself or someone else? Patient reports no desire to harm self or others. Onset of symptoms was December 21, 2020 at 15:10. 15:38 Method Of Arrival: EMS: [facility] j 15:38 Acuity: YOSI 3 jd3 Historical: - Allergies: 15:48 Cortisone; jd3 - Home Meds: 15:48 aspirin 81 mg Oral chew 1 tab once daily [Active]; jd3 - PMHx: 15:48 Atrial Fib; cardiac stents; R knee; TIA; jd3 - PSHx: 15:48 R knee; cardiac stents; jd3 - Immunization history:: Adult Immunizations up to date, Client reports receiving the 2nd dose of the Covid vaccine, Flu vaccine is not up to date. Patient has never been vaccinated. - Social history:: Smoking status: Patient reports the use of cigarette tobacco products, cigars. Screenin:09 Abuse screen: Denies threats or abuse. Nutritional screening: No deficits noted. ap3 Tuberculosis screening: No symptoms or risk factors identified. Fall Risk Fall in past 12 months (25 points). Secondary diagnosis (15 points) pt reports having many TIA's in the past and states that this is similar to what is happening this visit. No IV (0 pts). Ambulatory Aid- None/Bed Rest/Nurse Assist (0 pts). Gait- Weak (10 pts.). Mental Status- Oriented to own ability (0 pts). Total Wilkins Fall Scale indicates High Risk Score (45 or more points). Fall prevention measures have been instituted. Side Rails Up X 2 Placed Close to Nursing Station Frequent Obs/Assessments Occuring As available patient and family educated on Fall Prevention Program and Strategies. Assessment: 16:01 General: Appears in no apparent distress. Behavior is cooperative, appropriate for age, ap3 anxious. Pain: Complains of pain in right knee. Neuro: Level of Consciousness is awake, alert, obeys commands, Oriented to person, place, time, situation, Fire Battalion Chief are equal bilaterally unable to properly assess strength in right lower extremity due to reported knee pain. . Neuro: Neuro: Reports dizziness, a syncopal episode Denies blurred vision numbness headache. Cardiovascular: Reports syncope, Capillary refill < 3 seconds Chest pain is denied. Respiratory: Airway is patent Respiratory effort is even, unlabored, Respiratory pattern is regular, symmetrical, Denies shortness of breath. GI: No signs and/or symptoms were reported involving the gastrointestinal system. : No signs and/or symptoms were reported regarding the genitourinary system. EENT:. 16:15 Reassessment: patient currently refusing blood draw and IV placement. ap3 16:49 Reassessment: patient refusing all testing and treatment. insisting on going home at ap3 this time. 16:58 Reassessment: AMA form signed. Patient reminded on the risks of leaving AMA. Provider ap3 was at bedside educating patient on need for further evaluation. Patient insisted he was ready to go home, and wanted to leave against medical advice. Vital Signs: 15:48 BP 120 / 86; Pulse 97; Resp 17 S; Temp 97.4(TE); Pulse Ox 99% on R/A; Weight 70.31 kg jd3 (R); Height 6 ft. 0 in. (182.88 cm) (R); Pain 0/10; 15:55 BP 142 / 81 Supine; Pulse 101; ap3 16:00 BP 131 / 92 Sitting; Pulse 98; ap3 16:05 BP 132 / 91 Standing; Pulse 105; ap3 16:59 BP 122 / 95; Pulse 86; Resp 18; Pulse Ox 94% on R/A; Pain 0/10; ap3 15:48 Body Mass Index 21.02 (70.31 kg, 182.88 cm) jd3 Marilyn Coma Score: 16:22 Eye Response: spontaneous(4). Verbal Response: oriented(5). Motor Response: obeys jr8 commands(6). Total: 15. NIH Stroke Scale Scores: 16:22 NIHSS Score: 0 jr ED Course: 15:38 Patient arrived in ED. jd3 15:38 Nurse Practitioner and/or Physician Gastroenterology Teacher to see patient. jd3 15:39 Owen White PA is PHCP. jr8 15:39 Giles Eden MD is Attending Physician. jr8 15:46 Triage completed. jd3 15:49 Arm band placed on. jd3 16:01 Brenda Jimenes, JEREL is Primary Nurse. ap3 16:17 Patient has correct armband on for positive identification. Bed in low position. Call ap3 light in reach. Side rails up X2. Pulse ox on. NIBP on. Warm blanket given. Head of bed elevated. 16:41 Jamar Albarran MD is Referral Physician. jr8 16:41 Bright Duncan MD is Referral Physician. jr8 16:56 No provider procedures requiring assistance completed. Patient did not have IV access ap3 during this emergency room visit. Administered Medications: No medications were administered Outcome: 16:56 AMA AMA form signed ap3 16:56 Condition: unchanged 16:56 Instructed on Patient educated on need for further evaluation. Patient insisted on leaving AMA 17:01 Patient left the ED. ap3 NIH Stroke Scale - NIH Stroke Score Date: 12/21/2020 Time: 16:22 Total Score = 0 1a. Level of Consciousness (LOC) - 0(Alert) 1b. Level of Consciousness (LOC) (Year \\T\\ Age) - 0(Both) 1c. LOC Commands (Open \\T\\ Closes Eyes/Abstract Checker) - 0(Both) 2. Best Gaze (Lateral Gaze Paresis) - 0(Normal) 3. Visual Field Loss - 0(No visual loss) 4. Facial Palsy - 0(Normal) 5a. Left Arm: Motor (10-second hold) - 0(No drift) 5b. Right Arm: Motor (10-second hold) - 0(No drift) 6a. Left Leg: Motor (5-second hold - always test supine) - 0(No drift) 6b. Right Leg: Motor (5-second hold - always test supine) - 0(No drift) 7. Limb Ataxia (finger/nose \\T\\ heel/oliver - test with eyes open) - 0(Absent) 8. Sensory Loss (pinprick arms/legs/face) - 0(Normal) 9. Best Language: Aphasia (description/naming/reading) - 0(No aphasia) 10. Dysarthria (speech clarity - read or repeat words) - 0(Normal) 11. Extinction and Inattention (visual/tactile/auditory/spatial/personal) - 0(No abnormality) Initials: ghislaine Signatures: Owen White PA PA jr8 Cory Boswell RN RN jd3 Brenda Jimenes RN RN ap3 Corrections: (The following items were deleted from the chart) 15:51 15:38 Chief complaint: EMS states: "pt reported that he was going to have a jd3 'TIA.' so he went to the restroom. pt reports that he has these blackouts that he sees the Neurologist for and he calls them TIA. pt found in the bathroom after falling, with a short period of LOC with a potential hit to head. pt reports these happen all the time and wished to go back to work, but his co-workers convinced him to come to the ER. pt is fully awake, A\\T\\O X 4. stroke assessment was negative. pt denies pain." tosha 15 15:45 Nurse Practitioner and/or Physician Gastroenterology Teacher to see patient. tosha givens 15:38 Chief complaint: EMS states: "pt reported that he was going to have a jd3 'TIA.' so he went to the restroom. pt reports that he has these blackouts that he sees the Neurologist for and he calls them TIA. pt found in the bathroom after falling, with a short period of LOC with a potential hit to head. pt reports these happen all the time and wished to go back to work, but his co-workers convinced him to come to the ER. pt is fully awake, A\\T\\O X 4. stroke assessment was negative. pt denies pain." jd3 15:54 15:38 Acuity: YOSI 2 [facility] j
--- NOTE | 2020-12-21 16:42 | EDPHYS ---
Physician Documentation [facility] Name: Jacob Pearson Age: 60 yrs Sex: Male : 1960 Arrival Date: 12/21/2020 Time: 15:38 Bed 7 Private MD: ED Physician Giles Eden HPI: 12/21 16:02 This 60 yrs old Male presents to ER via EMS with complaints of TIA. jr8 16:02 Pt reports he has Hx of TIAs. He said they occur all the time and lasts 10 secs jr8 followed by vertigo for up to 12 hours. He arrived denying he wanted medical treatment and would not allow to have arm band. He is refusing CT as he reports having had at least 20 of them and MRIs. He is refusing blood work because he does not think it will tell anything new. He does admit he was here 3 weeks ago for same issue. . Historical: - Allergies: 15:48 Cortisone; jd3 - Home Meds: 15:48 aspirin 81 mg Oral chew 1 tab once daily [Active]; jd3 - PMHx: 15:48 Atrial Fib; cardiac stents; R knee; TIA; jd3 - PSHx: 15:48 R knee; cardiac stents; jd3 - Immunization history:: Adult Immunizations up to date, Client reports receiving the 2nd dose of the Covid vaccine, Flu vaccine is not up to date. Patient has never been vaccinated. - Social history:: Smoking status: Patient reports the use of cigarette tobacco products, cigars. ROS: 16:06 Cardiovascular: Negative for chest pain, palpitations, and edema, Respiratory: Negative jr8 for shortness of breath, cough, wheezing, and pleuritic chest pain, Abdomen/GI: Negative for abdominal pain, nausea, vomiting, diarrhea, and constipation, MS/Extremity: Negative for injury and deformity, Skin: Negative for injury, rash, and discoloration. 16:06 Neuro: Positive for loss of consciousness, syncope, Vertigo. 16:30 All other systems are negative. jr8 Exam: 16:22 Chest/axilla: Normal chest wall appearance and motion. Nontender with no deformity. jr8 No lesions are appreciated. Cardiovascular: Regular rate and rhythm with a normal S1 and S2. No gallops, murmurs, or rubs. Normal PMI, no JVD. No pulse deficits. Respiratory: Lungs have equal breath sounds bilaterally, clear to auscultation and percussion. No rales, rhonchi or wheezes noted. No increased work of breathing, no retractions or nasal flaring. Abdomen/GI: Soft, non-tender, with normal bowel sounds. No distension or tympany. No guarding or rebound. No evidence of tenderness throughout. Back: No spinal tenderness. No costovertebral tenderness. Full range of motion. MS/ Extremity: Pulses equal, no cyanosis. Neurovascular intact. Full, normal range of motion. 16:22 Neuro: Orientation: is normal, Mentation: is normal, Memory: is normal, Cranial nerves: CN I not tested, CN II- XII are normal as tested, extraocular movements are intact, Facial palsy and sensory deficits are absent. right lateral nystagmus, left lateral nystagmus, Speech is clear and appropriate. Gag reflex present. Tongue strength is normal, Cerebellar function: Romberg testing is abnormal, Pt wavered but reported it was his knee. Unable to stand with eye closed without assistance. , Motor: is normal, moves all fours, Sensation: is normal, Gait: is unsteady. Vital Signs: 15:48 BP 120 / 86; Pulse 97; Resp 17 S; Temp 97.4(TE); Pulse Ox 99% on R/A; Weight 70.31 kg jd3 (R); Height 6 ft. 0 in. (182.88 cm) (R); Pain 0/10; 15:55 BP 142 / 81 Supine; Pulse 101; ap3 16:00 BP 131 / 92 Sitting; Pulse 98; ap3 16:05 BP 132 / 91 Standing; Pulse 105; ap3 16:59 BP 122 / 95; Pulse 86; Resp 18; Pulse Ox 94% on R/A; Pain 0/10; ap3 15:48 Body Mass Index 21.02 (70.31 kg, 182.88 cm) jd3 NIH Stroke Scale Scores: 16:22 NIHSS Score: 0 jr8 Montfort Coma Score: 16:22 Eye Response: spontaneous(4). Verbal Response: oriented(5). Motor Response: obeys jr8 commands(6). Total: 15. MDM: 15:39 Patient medically screened. jr8 16:28 ED course: Pt was educated on importance of CT to see if any new acute changes are [facility] present. He verbalized purpose but declined anyway stating it will show nothing new. He explained he had plavix but no longer can afford it and so he only take daily baby ASA. . 16:39 ED course: Pt refuses additional care at this point. He was educated to return to [facility] neurologist for further evaluation and treatment. . 16:40 Data reviewed: vital signs, nurses notes. [facility] 12/21 15:56 Order name: Basic Metabolic Panel [facility] 12/21 15:56 Order name: CBC with Diff [facility] 12/21 15:56 Order name: EKG; Complete Time: 15:57 [facility] 12/21 15:56 Order name: Cardiac monitoring [facility] 12/21 15:56 Order name: EKG - Nurse/Tech; Complete Time: 16:30 [facility] 12/21 15:56 Order name: IV Saline Lock [facility] 12/21 15:56 Order name: Labs collected and sent [facility] 12/21 15:56 Order name: O2 Per Protocol; Complete Time: 16:30 [facility] 12/21 15:56 Order name: O2 Sat Monitoring; Complete Time: 16:30 [facility] 12/21 15:56 Order name: Orthostatics; Complete Time: 16:29 [facility] Administered Medications: No medications were administered Disposition: 18:23 Co-signature as Attending Physician, Giles Eden MD. rn Disposition: 12/21/20 16:41 Patient has left against medical advice. Impression: Syncope and collapse. - Patients states they are going to Home. - Condition is Stable. - Discharge Instructions: Syncope. Follow up: Jamar Albarran MD; When: 2 - 3 days; Reason: Recheck today's complaints, Continuance of care, Re-evaluation by your physician. Follow up: Bright Duncan MD; When: 2 - 3 days; Reason: Recheck today's complaints, Continuance of care, Re-evaluation by your physician. - Problem is new. - Symptoms are resolved. NIH Stroke Scale - NIH Stroke Score Date: 12/21/2020 Time: 16:22 Total Score = 0 1a. Level of Consciousness (LOC) - 0(Alert) 1b. Level of Consciousness (LOC) (Year \T\ Age) - 0(Both) 1c. LOC Commands (Open \T\ Closes Eyes/Salesforce Developer) - 0(Both) 2. Best Gaze (Lateral Gaze Paresis) - 0(Normal) 3. Visual Field Loss - 0(No visual loss) 4. Facial Palsy - 0(Normal) 5a. Left Arm: Motor (10-second hold) - 0(No drift) 5b. Right Arm: Motor (10-second hold) - 0(No drift) 6a. Left Leg: Motor (5-second hold - always test supine) - 0(No drift) 6b. Right Leg: Motor (5-second hold - always test supine) - 0(No drift) 7. Limb Ataxia (finger/nose \T\ heel/oliver - test with eyes open) - 0(Absent) 8. Sensory Loss (pinprick arms/legs/face) - 0(Normal) 9. Best Language: Aphasia (description/naming/reading) - 0(No aphasia) 10. Dysarthria (speech clarity - read or repeat words) - 0(Normal) 11. Extinction and Inattention (visual/tactile/auditory/spatial/personal) - 0(No abnormality) Initials: jr8 Signatures: Dispatcher [employer] EDPR Giles Eden MD MD rn Roszak, Josh, PA PA jr8 Cory Boswell RN RN Brenda Brian RN RN ap3 Corrections: (The following items were deleted from the chart) 16:10 15:57 Chest Single View+RAD.RAD.BRZ ordered. [facility] EDPR 16:28 16:02 This 60 yrs old Male presents to ER via EMS with complaints of jr8 TIA. jr8 17:01 16:41 12/21/2020 16:41 Patients has left against medical advice. Impression: ap3 Syncope and collapse. Patient states they are going to Home. Condition is Stable. Follow up: Jamar Albarran; When: 2 - 3 days; Reason: Recheck today's complaints, Continuance of care, Re-evaluation by your physician. Follow up: Bright Duncan; When: 2 - 3 days; Reason: Recheck today's complaints, Continuance of care, Re-evaluation by your physician. Problem is new. Symptoms are resolved. jr8
[2020-12-21 17:06] VITALS: TEMP 97.4
[2020-12-21 17:12] VITALS: BP 122/95; O2SAT 94
--- NOTE | 2020-12-23 08:00 | EKG ---
Test Date: 2020-12-21 Test Time: 16:05:47 Production Checker: SRINI MEASUREMENT RESULTS: Intervals: Rate: 79 UT: 134 QRSD: 112 QT: 430 QTc: 493 [place]: P: 36 UT: 134 QRS: 95 T: -22 INTERPRETIVE STATEMENTS: Normal sinus rhythm Rightward axis Left ventricular hypertrophy with repolarization abnormality Cannot rule out Inferior infarct, age undetermined Abnormal ECG Compared to ECG 08/13/2019 09:59:21 Right-axis deviation now present Left ventricular hypertrophy now present Early repolarization now present Myocardial infarct finding now present ST (T wave) deviation no longer present Possible ischemia no longer present Electronically Signed On 12-23-20 07:58:05 CDT by Jamar Albarran
== END 2020-12-21 17:01 | disposition left against medical advice (07) ==
LOC: ER 15:38
DX: R55 Syncope and collapse (principal); Z86.73 Personal history of transient ischemic attack (TIA), and cerebral infarction without residual deficits; I48.91 Unspecified atrial fibrillation; F17.290 Nicotine dependence, other tobacco product, uncomplicated; Z79.82 Long term (current) use of aspirin; Z88.8 Allergy status to other drugs, medicaments and biological substances; Z95.818 Presence of other cardiac implants and grafts
CPT/HCPCS: 93005; 99283

== ENCOUNTER 2021-01-16 23:11 | Emergency (ER) | payer BC ==
--- OUTSIDE RECORDS SUMMARY | 2021-01-16 23:13 | XMS REPORT | Continuity of Care Document ---
:1960 [address] [facility] t Address [address] [place] [address] Care Team Providers Name Role Phone Unavailable [...] Department ID 2019-05-13 2019-05-13 Outpatient [facility] [id number] [facility] 17:18:00 17:18:00 2019-05-13 2019-05-13 Inpatient E [facility] [address] [facility] 15:47:00 15:01:00 Results This patient has no known results.
--- NOTE | 2021-01-17 00:33 | ER ---
Nurse's Notes [facility] Name: Jacob Pearson Age: 60 yrs Sex: Male : 1960 Arrival Date: 01/16/2021 Time: 23:16 Bed 2 Private MD: Diagnosis: Anxiety disorder, unspecified;Alcohol abuse with intoxication;Hypomagnesemia;Insomnia;Tobacco abuse counseling;Tobacco use Presentation: 01/16 23:54 Chief complaint: Patient states: unable to sleep for 4 nights now, "I just want to rr5 sleep" I feel that is why I am having blurring of vision. I have psychiatry appointment tomorrow AT 1100h. Coronavirus screen: Client denies travel out of the [place] in the last 14 days. At this time, the client does not indicate any symptoms associated with coronavirus-19. Ebola Screen: Patient negative for fever greater than or equal to 101.5 degrees Fahrenheit, and additional compatible Ebola Virus Disease symptoms. Initial Sepsis Screen: Does the patient meet any 2 criteria? No. Patient's initial sepsis screen is negative. Does the patient have a suspected source of infection? No. Patient's initial sepsis screen is negative. Risk Assessment: Do you want to hurt yourself or someone else? Patient reports no desire to harm self or others. Onset of symptoms was January 12, 2021. 23:54 Method Of Arrival: Ambulatory rr5 23:54 Acuity: YOSI 3 rr5 Historical: - Allergies: 23:58 Cortisone; rr5 - Home Meds: 23:58 aspirin 81 mg Oral chew 1 tab once daily [Active]; rr5 - PMHx: 23:58 Atrial Fib; R knee; TIA; cardiac stents; rr5 - PSHx: 23:58 Knee surgery; Heart stents; rr5 - Immunization history:: Adult Immunizations up to date. - Social history:: Smoking status: Patient reports the use of cigarette tobacco products, cigars, Patient uses alcohol, but reports only rare drinking. Patient/guardian denies using street drugs. - Family history:: not pertinent. Screenin/19 01:36 Abuse screen: Denies threats or abuse. Denies injuries from another. Nutritional ad5 screening: No deficits noted. Tuberculosis screening: No symptoms or risk factors identified. Fall Risk None identified. Assessment: 00:30 Reassessment: Pt came to nurses station and states "I'm just going to leave. I do not jb4 want to be here. I am just going to go." Pt left ED with a steady gait. Respirations are even and unlabored. 01:30 Reassessment: Pt presents to ED with family for c/o loss of peripheral vision and ad5 unable to sleep x 4 days. Pt denies fall or injury, paresthesias, pain or other c/o. Pt AAOx3, speech clear and appropriate. YOUNGBLOOD with ease. No focal deficits noted. Pt reports taking meds at home for epilepsy, denies recent change or missing dose. Pt sister reports pt with increased agitation. 01:34 Reassessment: Pt back to room at this time with family, agreeable to plan of care at ad5 this time. Pt appears agitated, but cooperative with staff. Awaiting MD assessment at this time. General: Appears in no apparent distress. Behavior is cooperative, agitated, anxious. Neuro: Level of Consciousness is awake, alert, obeys commands, Oriented to person, place, time, situation, Appropriate for age Sheet Roller Operator are equal bilaterally Moves all extremities. Gait is steady, Speech is normal, Facial symmetry appears normal, Pupils are PERRLA, Intact. Cardiovascular: No deficits noted. Heart tones present Capillary refill < 3 seconds Patient's skin is warm and dry. Pulses are all present. Respiratory: No deficits noted. Airway is patent Trachea midline Respiratory effort is even, unlabored, Respiratory pattern is regular, symmetrical. GI: No deficits noted. : No deficits noted. EENT: No deficits noted. Derm: No deficits noted. Skin is pink, warm \\T\\ dry. Musculoskeletal: No deficits noted. 02:30 Reassessment: Patient appears in no apparent distress at this time. No changes from ad5 previously documented assessment. Patient and/or family updated on plan of care and expected duration. Pain level reassessed. Patient denies pain at this time. 03:40 Reassessment: Patient appears in no apparent distress at this time. No changes from ad5 previously documented assessment. Patient and/or family updated on plan of care and expected duration. Pain level reassessed. Patient denies pain at this time. 03:55 Reassessment: Pt request for discharge, provided d/c paperwork and prescriptions at ad5 this time. SL to L wrist removed, VSS. Pt remains awake and alert. Denies c/o at this time. Pt left ED independently, with family, ambulatory with steady gait. NAD noted upon discharge. Psych: 01:30 [place] Suicide Severity Screening: In the past month, have you wished you were ad5 or wished you could go to sleep and not wake up? Patient responds "No." "In the past month, have you actually had any thoughts of killing yourself?" Patient responds "no." "In your lifetime, have you ever done anything, started to do anything, or prepared to do anything to end your life?" Patient responds "no.". Subjective: Patient's mood is irritable, Delusions are denied, Hallucinations are denied. Objective: Patient is defensive, guarded, irritable, restless, Speech is rambling, Affect is appropriate. Interventions:. Safety Checks: Door is open. Visitors are present. Pt denies substance abuse. Vital Signs: 01/16 23:54 BP 143 / 88; Pulse 99; Resp 19; Temp 97.6; Pulse Ox 99% ; Weight 68.49 kg; Height 6 ft. rr5 0 in. (182.88 cm); Pain 0/10; 01/17 02:29 BP 132 / 92; Pulse 67; Resp 16 S; Pulse Ox 97% on R/A; Pain 0/10; ad5 03:40 BP 151 / 85; Pulse 72; Resp 16 S; Pulse Ox 97% on R/A; Pain 0/10; ad5 01/16 23:54 Body Mass Index 20.48 (68.49 kg, 182.88 cm) rr5 ED Course: 01/16 23:16 Patient arrived in ED. bp1 23:57 Triage completed. rr5 23:59 Arm band placed on right wrist. rr5 01/17 00:27 Farhad Diez MD is Attending Physician. sonny 01:34 Ramy Bowles is Primary Nurse. ad5 01:36 Patient has correct armband on for positive identification. Bed in low position. Call ad5 light in reach. Side rails up X 1. Door closed. Noise minimized. 02:20 Inserted saline lock: 20 gauge in left wrist, using aseptic technique. ad5 02:33 CT Head Brain wo Cont Sent. ad5 03:21 Tim Abla MD is Referral Physician. sonny 03:53 No provider procedures requiring assistance completed. ad5 03:53 IV discontinued, intact, bleeding controlled, No redness/swelling at site. Pressure ad5 dressing applied. Administered Medications: 02:29 Drug: NS 0.9% 1000 ml Route: IV; Rate: 1 bolus; Site: left wrist; ad5 03:39 Follow up: IV Status: Completed infusion; IV Intake: 1000ml ad5 02:29 Drug: Thiamine 100 mg Route: IV; Rate: per protocol; Site: left wrist; ad5 03:38 Follow up: IV Status: Completed infusion ad5 03:36 Drug: Magnesium Sulfate 1 grams Route: IVPB; Infused Over: 1 hrs; Site: left wrist; ad5 03:52 Follow up: IV Status: Completed infusion; IV Intake: 15ml ; pt refusing to continue IV ad5 Mg at this time, MD aware 03:52 Not Given (Patient Refused): Aspirin Chewable Tablet 162 mg PO once ad5 Intake: 03:39 IV: 1000ml; Total: 1000ml. ad5 03:52 IV: 15ml; Total: 1015ml. ad5 Outcome: 00:30 Eloped from patient exam room, before seeing physician Time discovered patient gone: jb4 January 17, 2021 at 00:30 00:30 Condition: unchanged 00:32 Patient left the ED. [facility] 03:23 Discharge ordered by . sonny 03:56 Patient left the ED. ad5 Signatures: Farhad Diez MD MD cha Bryson, James, RN RN jb4 Dino Burciaga, RN RN rr5 Amanda Person Andrea ad5 Corrections: (The following items were deleted from the chart) 00:01 01/16 23:54 Chief complaint: Patient states: unable to sleep for 4 nights now, "I just rr5 want to sleep" I have psychiatry appointment tomorrow AT 1100h rr5 01/17 00:01 01/16 23:54 Acuity: YOSI 4 rr5 rr5
[2021-01-17 00:56] VITALS: TEMP 97.6
[2021-01-17] MEDS ORDERED: THIAMINE 200 MG/2 ML INJ ONE (02:29)
[2021-01-17] MEDS ORDERED: NA CHLORIDE 0.9% 1,000 ML ONE (02:30)
[2021-01-17 02:55] LABS: Absolute Lymphocytes (CBC) 3.3 K/uL (0.7-4.9); Basophils % 0.3 % (0-1.3); Hematocrit 46.4 % (39.6-49.0); Lymphocytes % 42.5 % (15.3-44.8); MPV 9.1 fL (7.6-11.3); RBC Red Blood Cell Count 4.66 M/uL (4.33-5.43)
[2021-01-17 02:57] LABS: Protime INR 0.99
[2021-01-17 03:16] LABS: ALT/SGPT 29 U/L (12-78); AST/SGOT 33 U/L (15-37); Albumin 3.9 g/dL (3.4-5.0); Alkaline Phosphatase 78 U/L (45-117); BUN Blood Urea Nitrogen 5 mg/dL (7-18); Bicarbonate 28 mmol/L (21-32); Bilirubin Direct 0.1 mg/dL (0-0.2); Bilirubin Total 0.4 mg/dL (0.2-1.0); Glucose Level 77 mg/dL (74-106); Magnesium 1.7 mg/dL (1.8-2.4); NT PRO-BNP 158 pg/mL (<125); Potassium 3.6 mmol/L (3.5-5.1); Protein, Total 8.6 g/dL (6.4-8.2); Sodium Level 137 mmol/L (136-145); Troponin (Emerg Dept Use Only) 0.02 ng/mL (0.0-0.045)
[2021-01-17 03:17] LABS: C-Reactive Protein < 2.90 mg/L (<3.00)
--- NOTE | 2021-01-17 03:23 | EDPHYS ---
Physician Documentation [facility] Name: Jacob Pearson Age: 60 yrs Sex: Male : 1960 Arrival Date: 01/16/2021 Time: 23:16 Bed 2 Private MD: ED Physician Farhad Diez HPI: 01/17 01:38 This 60 yrs old Male presents to ER via Ambulatory with complaints of sonny Anxiety, Depression, Blurred Vision, Hasn't ate in 3 days. 01:38 weakness , 4 days of vision changes, tunnel vision, not eating, has psych appointment sonny tomorrow. The patient presents with agitation. Onset: The symptoms/episode began/occurred 4 day(s) ago. Possible causes: unknown. The patient presents to the emergency department with weakness of the a vision problem, blurred vision, tunnel vision. Context: occurred at home. Historical: - Allergies: 01/16 23:58 Cortisone; rr5 - Home Meds: 23:58 aspirin 81 mg Oral chew 1 tab once daily [Active]; rr5 - PMHx: 23:58 Atrial Fib; R knee; TIA; cardiac stents; rr5 - PSHx: 23:58 Knee surgery; Heart stents; rr5 - Immunization history:: Adult Immunizations up to date. - Social history:: Smoking status: Patient reports the use of cigarette tobacco products, cigars, Patient uses alcohol, but reports only rare drinking. Patient/guardian denies using street drugs. - Family history:: not pertinent. ROS: 01/17 01:38 Constitutional: Negative for fever, chills, and weight loss, ENT: Negative for injury, sonny pain, and discharge, Neck: Negative for injury, pain, and swelling, Cardiovascular: Negative for chest pain, palpitations, and edema, Respiratory: Negative for shortness of breath, cough, wheezing, and pleuritic chest pain, Abdomen/GI: Negative for abdominal pain, nausea, vomiting, diarrhea, and constipation, Back: Negative for injury and pain, : Negative for injury, bleeding, discharge, and swelling, MS/Extremity: Negative for injury and deformity, Skin: Negative for injury, rash, and discoloration, Neuro: Negative for headache, weakness, numbness, tingling, and seizure, Psych: Negative for depression, anxiety, suicide ideation, homicidal ideation, and hallucinations, Allergy/Immunology: Negative for hives, rash, and allergies, Endocrine: Negative for neck swelling, polydipsia, polyuria, polyphagia, and marked weight changes, Hematologic/Lymphatic: Negative for swollen nodes, abnormal bleeding, and unusual bruising. Eyes: Positive for visual disturbance. Exam: 01:38 Constitutional: This is a well developed, well nourished patient who is awake, alert, sonny and in no acute distress. Head/Face: Normocephalic, atraumatic. Eyes: Pupils equal round and reactive to light, extra-ocular motions intact. Lids and lashes normal. Conjunctiva and sclera are non-icteric and not injected. Cornea within normal limits. Periorbital areas with no swelling, redness, or edema. ENT: Nares patent. No nasal discharge, no septal abnormalities noted. Tympanic membranes are normal and external auditory canals are clear. Oropharynx with no redness, swelling, or masses, exudates, or evidence of obstruction, uvula midline. Mucous membranes moist. Neck: Trachea midline, no thyromegaly or masses palpated, and no cervical lymphadenopathy. Supple, full range of motion without nuchal rigidity, or vertebral point tenderness. No Meningismus. Chest/axilla: Normal chest wall appearance and motion. Nontender with no deformity. No lesions are appreciated. Cardiovascular: Regular rate and rhythm with a normal S1 and S2. No gallops, murmurs, or rubs. Normal PMI, no JVD. No pulse deficits. Respiratory: Lungs have equal breath sounds bilaterally, clear to auscultation and percussion. No rales, rhonchi or wheezes noted. No increased work of breathing, no retractions or nasal flaring. Abdomen/GI: Soft, non-tender, with normal bowel sounds. No distension or tympany. No guarding or rebound. No evidence of tenderness throughout. Back: No spinal tenderness. No costovertebral tenderness. Full range of motion. Male : Normal genitalia with no discharge or lesions. Skin: Warm, dry with normal turgor. Normal color with no rashes, no lesions, and no evidence of cellulitis. MS/ Extremity: Pulses equal, no cyanosis. Neurovascular intact. Full, normal range of motion. Neuro: Awake and alert, GCS 15, oriented to person, place, time, and situation. Cranial nerves II-XII grossly intact. Motor strength 5/5 in all extremities. Sensory grossly intact. Cerebellar exam normal. Normal gait. Psych: Awake, alert, with orientation to person, place and time. Behavior, mood, and affect are within normal limits. 01:38 Musculoskeletal/extremity: DVT Exam: No signs of deep vein thrombosis. no pain, no swelling, no tenderness, negative Homans' sign noted on exam, no appreciated bluish discoloration, no erythema, no increased warmth. 03:35 ECG was reviewed by the Attending Physician. [facility] Vital Signs: 01/16 23:54 BP 143 / 88; Pulse 99; Resp 19; Temp 97.6; Pulse Ox 99% ; Weight 68.49 kg; Height 6 ft. rr5 0 in. (182.88 cm); Pain 0/10; 01/17 02:29 BP 132 / 92; Pulse 67; Resp 16 S; Pulse Ox 97% on R/A; Pain 0/10; ad5 03:40 BP 151 / 85; Pulse 72; Resp 16 S; Pulse Ox 97% on R/A; Pain 0/10; ad5 01/16 23:54 Body Mass Index 20.48 (68.49 kg, 182.88 cm) rr5 MDM: 00:27 Patient medically screened. sonny 01:41 Differential Diagnosis: CVA, alcohol intoxication, hypoglycemia, intracranial bleed, sonny seizure, TIA, UTI, volume depletion. Data reviewed: vital signs, nurses notes, lab test result(s), EKG, radiologic studies, CT scan, plain films. Data interpreted: monitor tech: rate is 99 beats/min, rhythm is regular, Pulse oximetry: on room air is 99 %. Test interpretation: by ED physician or midlevel provider: ECG, plain radiologic studies. Counseling: I had a detailed discussion with the patient and/or guardian regarding: the historical points, exam findings, and any diagnostic results supporting the discharge/admit diagnosis, lab results, radiology results. 01/17 01:37 Order name: Basic Metabolic Panel [facility] 01/17 01:37 Order name: CBC with Diff [facility] 01/17 01:37 Order name: LFT's [facility] 01/17 01:37 Order name: Magnesium [facility] 01/17 01:37 Order name: NT PRO-BNP [facility] 01/17 01:37 Order name: PT-INR [facility] 01/17 01:37 Order name: Troponin (emerg Dept Use Only) [facility] 01/17 01:37 Order name: Urine Culture [facility] 01/17 01:37 Order name: Sed Rate [facility] 01/17 01:37 Order name: CRP [facility] 01/17 01:43 Order name: COVID-19 : Document "Date of Symptom Onset" if Symptomatic. [facility] 01/17 01:43 Order name: ETOH Level [facility] 01/17 01:43 Order name: UDS [facility] 01/17 02:40 Order name: CORONAVIRUS [facility] 01/17 01:37 Order name: XRAY Chest (1 view) [facility] 01/17 01:37 Order name: CT Head Brain wo Cont; Complete Time: 03:18 [facility] 01/17 02:57 Order name: Protime (+INR); Complete Time: 03:18 [facility] 01/17 03:18 Order name: Basic Metabolic Panel; Complete Time: 03:18 [facility] 01/17 03:18 Order name: Liver (Hepatic) Function; Complete Time: 03:18 [facility] 01/17 03:18 Order name: Troponin (Emerg Dept Use Only); Complete Time: 03:18 [facility] 01/17 03:18 Order name: NT PRO-BNP; Complete Time: 03:18 [facility] 01/17 03:18 Order name: C-Reactive Protein; Complete Time: 03:18 [facility] 01/17 03:18 Order name: Magnesium; Complete Time: 03:18 [facility] 01/17 03:18 Order name: Alcohol Serum/Plasma; Complete Time: 03:18 [facility] 01/17 03:19 Order name: CBC with Automated Diff [facility] 01/17 03:26 Order name: Urine Dipstick-Ancillary [facility] 01/17 03:38 Order name: Urine Drug Screen [facility] 01/17 03:45 Order name: Sedimentation Rate, [place] [facility] 01/17 01:37 Order name: EKG; Complete Time: 01:38 [facility] 01/17 01:37 Order name: Cardiac monitoring; Complete Time: 03:40 [facility] 01/17 01:37 Order name: EKG - Nurse/Tech; Complete Time: 03:40 [facility] 01/17 01:37 Order name: IV Saline Lock; Complete Time: 02:28 [facility] 01/17 01:37 Order name: Labs collected and sent; Complete Time: 02:28 [facility] 01/17 01:37 Order name: O2 Sat Monitoring; Complete Time: 02:28 sonny 01/17 01:37 Order name: Urine Dipstick-Ancillary (obtain specimen) [facility] EC:35 Rate is 82 beats/min. Rhythm is regular. QRS [place] is Normal. [place] interval is normal. QRS sonny interval is normal. QT interval is prolonged at 418 msec. No Q waves. T waves are Normal. No ST changes noted. Clinical impression: NSR w/ Non-specific ST/T Changes and No evidence of ischemia. Interpreted by me. Reviewed by me. Administered Medications: 02:29 Drug: NS 0.9% 1000 ml Route: IV; Rate: 1 bolus; Site: left wrist; ad5 03:39 Follow up: IV Status: Completed infusion; IV Intake: 1000ml ad5 02:29 Drug: Thiamine 100 mg Route: IV; Rate: per protocol; Site: left wrist; ad5 03:38 Follow up: IV Status: Completed infusion ad5 03:36 Drug: Magnesium Sulfate 1 grams Route: IVPB; Infused Over: 1 hrs; Site: left wrist; ad5 03:52 Follow up: IV Status: Completed infusion; IV Intake: 15ml ; pt refusing to continue IV ad5 Mg at this time, MD aware 03:52 Not Given (Patient Refused): Aspirin Chewable Tablet 162 mg PO once ad5 Disposition: 01/17/21 03:23 Discharged to Home. Impression: Anxiety disorder, unspecified, Alcohol abuse with intoxication, Hypomagnesemia, Insomnia, Tobacco abuse counseling, Tobacco use. - Condition is Stable. - Discharge Instructions: Alcohol Intoxication, Hypomagnesemia, Steps to Quit Smoking, Smoking Hazards, Alcohol Intoxication, [id number], Alcohol Abuse and Nutrition, Steps to Quit Smoking, [id number], Aspirin and Your Heart. - Prescriptions for Pepcid 20 mg Oral Tablet - take 1 tablet by ORAL route every 12 hours for 10 days; 20 tablet. Vitamin 27- 0.8 mg Oral Tablet - take 1 tablet by ORAL route once daily; 30 tablet. - Medication Reconciliation Form, Thank You Letter, Antibiotic Education, Prescription Opioid Use form. - Follow up: Private Physician; When: 2 - 3 days; Reason: Recheck today's complaints, Continuance of care, Re-evaluation by your physician. Follow up: Tim Alba MD; When: 2 - 3 days; Reason: Recheck today's complaints, Re-evaluation by your physician. - Problem is new. - Symptoms have improved. Signatures: Dispatcher [employer] EDFarhad Kendall MD MD cha Bryson, James, RN RN jb4 Dino Burciaga, RN RN rr5 Ramy Bowles ad5 Corrections: (The following items were deleted from the chart) 01:08 00:32 01/17/2021 00:32 Patient left the facility before being seen by provider. Reason mw2 stated they are leaving due to (see nurse's notes). jb4 02:28 01:37 Oxygen Per Protocol ordered. sonny ad5 03:56 03:23 01/17/2021 03:23 Discharged to Home. Impression: Anxiety disorder, unspecified; ad5 Alcohol abuse with intoxication; Hypomagnesemia; Insomnia; Tobacco abuse counseling; Tobacco use. Condition is Stable. Forms are Medication Reconciliation Form, Thank You Letter, Antibiotic Education, Prescription Opioid Use. Follow up: Private Physician; When: 2 - 3 days; Reason: Recheck today's complaints, Continuance of care, Re-evaluation by your physician. Follow up: Tim Alba; When: 2 - 3 days; Reason: Recheck today's complaints, Re-evaluation by your physician. Problem is new. Symptoms have improved. sonny
[2021-01-17 03:25] LABS: Urine Blood Negative (Negative); Urine Glucose Negative (Negative); Urine Protein Negative (Negative); Urine Specific Gravity <=1.005 (1.005-1.030)
[2021-01-17 03:38] LABS: Barbiturates NEGATIVE (NEGATIVE); Benzodiazepines NEGATIVE (NEGATIVE); Cocaine NEGATIVE (NEGATIVE); METHAMPHETAM NEGATIVE (NEGATIVE); Methadone NEGATIVE (NEGATIVE); Opiates NEGATIVE (NEGATIVE); Phencyclidine NEGATIVE (NEGATIVE); THC Cannibis NEGATIVE (NEGATIVE)
[2021-01-17] MEDS ORDERED: Magnesium Sulfate 2gm IVPB 2 G/50 ML BAG IV ONE (03:46)
[2021-01-17 04:08] VITALS: O2SAT 97
[2021-01-17 04:10] VITALS: BP 151/85
--- NOTE | 2021-01-17 08:41 | EKG ---
Test Date: 2021-01-17 Test Time: 03:32:22 Health Care Specialist: SHARMIN MEASUREMENT RESULTS: Intervals: Rate: 82 ME: 124 QRSD: 114 QT: 418 QTc: 488 Hinkle: P: 64 ME: 124 QRS: 61 T: 114 INTERPRETIVE STATEMENTS: Normal sinus rhythm Nonspecific T wave abnormality Prolonged QT Abnormal ECG Compared to ECG 12/21/2020 16:05:47 T-wave abnormality now present Prolonged QT interval now present Right-axis deviation no longer present Left ventricular hypertrophy no longer present Early repolarization no longer present Myocardial infarct finding no longer present Electronically Signed On 01-17-21 08:41:06 CDT by Jamar Albarran
--- NOTE | 2021-01-17 08:48 | RAD REPORT ---
EXAM DESCRIPTION: RAD - Chest Single View - 01/17/2021 2:15 am CLINICAL HISTORY: COUGH, atrial fibrillation, prior cardiac stenting COMPARISON: August 2019 TECHNIQUE: AP portable chest image was obtained 01/17/2021 2:15 am . FINDINGS: Lungs are clear. Interstitial pattern matches comparison. Heart and vasculature are normal . No measurable pleural effusion and no pneumothorax. No acute bony abnormality seen. No acute aortic findings suspected. IMPRESSION: No acute cardiopulmonary process. No significant change from comparison study.
--- NOTE | 2021-01-17 17:02 | RAD REPORT ---
EXAM DESCRIPTION: CT - Head Brain Wo Cont - 01/17/2021 7:07 am CLINICAL HISTORY: The patient is 60 years old and is Male; Dizziness;Visual disturbances TECHNIQUE: Axial computed tomography images of the head/brain without intravenous contrast. Sagitt al and coronal reformatted images were created and reviewed. This CT exam was performed using one o r more of the following dose reduction techniques: automated exposure control, adjustment of the mA and/or kV according to patient size, and/or use of iterative reconstruction technique. COMPARISON: CT head 08/13/2019. FINDINGS: Brain: Mild cerebral atrophy. No hemorrhage. No significant white matter disease. Ventricles: No ventriculomegaly. Bones/joints: Unremarkable. No acute fracture. Soft tissues: Unremarkable. Sinuses: Unremarkable as visualized. Mastoid air cells: Unremarkable as visualized. No mastoid effusion. IMPRESSION: No acute intracranial abnormality. Electronically signed by: Vincent Cruz MD 01/17/2021 2:57 AM CDT Due to temporary technical issues with the PACS/Fluency reporting system, reports are being signed by the in house radiologists without review as a courtesy to insure prompt reporting. The interpreting radiologist is fully responsible for the content of the report.
== END 2021-01-17 03:56 | disposition home or self-care (01) ==
LOC: ER 23:11
DX: F10.129 Alcohol abuse with intoxication, unspecified (principal); E83.42 Hypomagnesemia; G47.00 Insomnia, unspecified; Z71.6 Tobacco abuse counseling; Z72.0 Tobacco use; Z20.822 Contact with and (suspected) exposure to COVID-19; Z79.82 Long term (current) use of aspirin; Z88.8 Allergy status to other drugs, medicaments and biological substances; Z95.818 Presence of other cardiac implants and grafts
CPT/HCPCS: 93005; 87088; 85025; 87086; 80048; 36415; 80320; 83735; 85610; 80076; 80307 ×8; 85652; 81003; 84484; 83880; 86140; 70450; 71045; U0003; J3411; J3475; J7030; 96365; 99284